=== PATIENT | male | born 1975 | race Caucasian/White ===

== ENCOUNTER 2016-12-18 11:25 | Inpatient (IN) | payer BC ==
[2016-12-18 14:50] VITALS: BMI 27.8
--- NOTE | 2016-12-18 16:48 | HP ---
COWS - Scale Resting Pulse: 1= [place] 81-100 Sweatin= Chills/Flushing Restless Observation: 3= Extraneous Movement Pupil Size: 0= Normal to Room Light Bone or Joint Aches: 1= Mild Discomfort Runny Nose/ Eye Tearin= Nasal Congestion GI Upset > 30mins: 2= Nausea/Diarrhea Tremor Observation: 2= Slight Tremor Visible Yawning Observation: 1= 1-2x During Session Anxiety or Irritability: 2=Irritable/Anxious Goose Flesh Skin: 0=Smooth Skin COWS Score: 14 CIWA Score - CIWA Score Nausea/Vomitin-Mild Nausea/No Vomiting Muscle Tremors: 4-Moderate,w/Arms Extend Anxiety: 4-Mod. Anxious/Guarded Agitation: 4-Moderately Restless Paroxysmal Sweats: 1-Minimal Palms Moist Orientation: 2-Disoriented Date<2 days Tacttile Disturbances: 0-None Auditory Disturbances: 0-None Visual Disturbances: 0-None Headache: 0-None Present CIWA-Ar Total Score: 16 Admission ROS S - HPI Chief Complaint: withdrawal sx Allergies/Adverse Reactions: Allergies Allergy/AdvReac Type Severity Reaction Status Date / Time No Known Allergies Allergy Verified 12/18/16 16:23 History of Present Illness: 41 years old male with long history of alcohol opiate cocaine nicotine dependence, history of hypertension has depression admitted to detox Exam Limitations: No Limitations - Ebola screening Have you traveled outside of the country in the last 21 days: No Have you had contact with anyone from an Ebola affected area: No Have you been sick,other than usual withdrawal symptoms: No Do you have a fever: No - Review of Systems Constitutional: Chills, Changes in sleep, Weight Stable EENT: reports: No Symptoms Reported Respiratory: reports: No Symptoms reported Cardiac: reports: No Symptoms Reported GI: reports: Nausea, Poor Fluid Intake, Abdominal cramping : reports: No Symptoms Reported Musculoskeletal: reports: Back Pain, Joint Pain, Muscle Pain, Neck Pain Integumentary: reports: Change in Color (both inner elbows) Neuro: reports: Tremors Endocrine: reports: No Symptoms Reported Hematology: reports: No Symptoms Reported Psychiatric: reports: Judgement Intact, Depressed Other Systems: Reviewed and Negative Patient History - Patient Medical History Hx Anemia: No Hx Asthma: No Hx Chronic Obstructive Pulmonary Disease (COPD): No Hx Cancer: No Hx Cardiac Disorders: No Hx Hypertension: Yes (non compliant with meds.) Hx Hypercholesterolemia: No Hx Pacemaker: No HX Cerebrovascular Accident: No Hx Seizures: No Hx Dementia: No Hx Diabetes: No Hx Gastrointestinal Disorders: No Hx Liver Disease: No Hx Genitourinary Disorders: No Hx Sexually Transmitted Disorders: No Hx Renal Disease (ESRD): No Hx Thyroid Disease: No Hx Human Immunodeficiency Virus (HIV): No (negative) Hx Hepatitis C: Yes (diagnosed 6months ago) Hx Depression: Yes Hx Suicide Attempt: No Hx Bipolar Disorder: No Hx Schizophrenia: No - Patient Surgical History Past Surgical History: No - PPD History Previous Implant?: Yes Documented Results: Negative w/o proof Implanted On Prior [facility] Admission?: No Date: 10/13/14 PPD to be Administered?: Yes - Smoking Cessation Smoking history: Current every day smoker Have you smoked in the past 12 months: Yes Aproximately how many cigarettes per day: 20 Cigars Per Day: 0 Hx Chewing Tobacco Use: No Initiated information on smoking cessation: Yes 'Breaking Loose' booklet given: 12/18/16 - Substance & Tx. History Hx Alcohol Use: Yes Hx Substance Use: Yes Substance Use Type: Alcohol, Cocaine, Opiates Hx Substance Use Treatment: Yes - Substances Abused Heroin Route: Injection Frequency: Daily Amount used: 8-10 bags Age of first use: 36 Date of Last Use: 12/18/16 Alcohol Route: Oral Frequency: Daily Amount used: 1 liter vodka Age of first use: 11 Date of Last Use: 12/17/16 Cocaine Route: Injection Frequency: 3-6 times per week Amount used: $20 Age of first use: 13 Date of Last Use: 12/17/16 Family Disease History - Family Disease History Family Disease History: [place]: Father (prostate), Other: Mother (thyroid), Brother (hepatitis c) Admission Physical Exam BHS - Vital Signs Vital Signs: Vital Signs - 24 hr 12/18/16 14:48 Temperature 97.9 F Pulse Rate 99 H Respiratory 20 Rate Blood Pressure 154/82 - Physical General Appearance: Yes: Nourished, Appropriately Dressed, Mild Distress, Tremorous, Irritable, Sweating, Anxious HEENTM: Yes: Hearing grossly Normal, Normal ENT Inspection, Normocephalic, Normal Voice Respiratory: Yes: Chest Non-Tender, Lungs Clear, Normal Breath Sounds, No Respiratory Distress, No Accessory Muscle Use Neck: Yes: Supple, Trachea in good position Breast: Yes: Breasts Symetrical Cardiology: Yes: Regular Rhythm, S1, S2, Tachycardia Abdominal: Yes: Non Tender, Soft Genitourinary: Yes: Within Normal Limits Back: Yes: Normal Inspection Musculoskeletal: Yes: full range of Motion, Gait Steady, Back pain, Muscle Pain Extremities: Yes: Normal Range of Motion, Non-Tender, Tremors Neurological: Yes: Alert, Motor Strength 5/5, Normal Response, Depressed Affect Integumentary: Yes: Warm, Track Schwab Lymphatic: Yes: Within Normal Limits - Diagnostic (1) Hypertension Current Visit: Yes Status: Chronic Qualifiers: Hypertension type: essential hypertension Qualified Code(s): I10 - Essential (primary) hypertension (2) Nicotine dependence Current Visit: Yes Status: Acute Qualifiers: Nicotine product type: cigarettes Substance use status: in withdrawal Qualified Code(s): F17.213 - Nicotine dependence, cigarettes, with withdrawal (3) Alcohol dependence with uncomplicated withdrawal Current Visit: Yes Status: Acute (4) Opioid dependence with withdrawal Current Visit: Yes Status: Acute (5) Cocaine dependence, uncomplicated Current Visit: Yes Status: Chronic (6) Hepatitis C antibody test positive Current Visit: Yes Status: Chronic (7) Depression (emotion) Current Visit: Yes Status: Suspected Qualifiers: Depression Type: dysthymia Qualified Code(s): F34.1 - Dysthymic disorder Cleared for Admission [facility] - Detox or Rehab [facility] Level of Care: Medically Managed Detox Regimen/Protocol: Methadone/Librium [facility] Breath Alcohol Content Breath Alcohol Content: 0 Urine Drug Screen - Results Drug Screen Negative: No Urine Drug Screen Results: TISHA-Cocaine, OPI-Opiates, TCA-Tricyclic Antidepress
[2016-12-18] MEDS ORDERED: LOPERAMIDE HCL 2 MG CAPSULE PO PRN (16:52)
[2016-12-18] MEDS ORDERED: MAGNESIUM HYDROX 2400MG/30ML ORAL SUSPENSION 30 ML CUP PO PRN (16:52)
[2016-12-18] MEDS ORDERED: P-EPHED 60MG/TRIPROLIDI 2.5MG TABLET PO PRN (16:52)
[2016-12-18] MEDS ORDERED: MAGNESIUM CITRATE 300 ML BOTTLE PO PRN (16:52)
[2016-12-18] MEDS ORDERED: MAG HYDROX/AL HYDROX/SIMETH 30 ML UNIT-DOSE CUP PO PRN (16:52)
[2016-12-18] MEDS ORDERED: guaiFENesin/D-METHORPHAN HB 10 ML UNIT-DOSE CUPS PO PRN (16:52)
[2016-12-18] MEDS ORDERED: chlordiazePOXIDE HCL 25 MG CAPSULE PO PRN (16:52)
[2016-12-18] MEDS ORDERED: MENTHOL/PHENOL 1 EACH UD MM PRN (16:52)
[2016-12-18] MEDS ORDERED: ACETAMINOPHEN 325 MG TABLET (FP) PO PRN (16:52)
[2016-12-18] MEDS ORDERED: cloNIDine HCL 0.1 MG TABLET PO PRN (16:56)
[2016-12-18] MEDS ORDERED: METHADONE HCL 10 MG TABLET (FOR DETOX USE ONLY) PO ONE ×2 (18:15→23:00)
[2016-12-18 21:39] LABS: URINE APPEARANCE CLEAR; URINE BLOOD NEGATIVE (NEGATIVE); URINE COLOR AMBER; URINE GLUCOSE (UA) NEGATIVE (NEGATIVE); URINE KETONE NEGATIVE (NEGATIVE); URINE LEUK ESTERASE NEGATIVE (NEGATIVE); URINE NITRITE NEGATIVE (NEGATIVE); URINE UROBILINOGEN 4.0 E.U/dl E.U./dl (0.2-1.0)
[2016-12-18 21:41] LABS: URINE PROTEIN 1+ (NEGATIVE)
[2016-12-18 22:06] LABS: URINE MUCUS MODERATE; URINE RBC 2 /hpf (0-3); URINE WBC 1 /hpf (3-5)
[2016-12-18] MEDS: chlordiazePOXIDE HCL 25 MG CAPSULE PO SCH (22:44)
[2016-12-18] MEDS: THIAMINE HCL 100 MG TABLET (FP) PO SCH (22:44)
[2016-12-18] MEDS: diphenhydrAMINE HCL 50 MG CAPSULE PO PRN (22:44)
[2016-12-19] MEDS: chlordiazePOXIDE HCL 25 MG CAPSULE PO SCH ×4 (06:09→23:03)
--- NOTE | 2016-12-19 09:06 | CONSULT ---
[facility] Psychiatric Consult - Data Date of interview: 12/19/16 Admission source: [facility] Identifying data: This is 41 years old male with psychiatric hospitalization history, intoxicated with: Alcoghol, Opioids, Cocaine, Nicotine Substance Abuse History: Smoking history: Current every day smoker. Have you smoked in the past 12 months: Yes. Aproximately how many cigarettes per day: 20. Cigars Per Day: 0. Hx Chewing Tobacco Use: No. Initiated information on smoking cessation: Yes. 'Breaking Loose' booklet given: 12/18/16. - Substance & Tx. History. Hx Alcohol Use: Yes. Hx Substance Use: Yes. Substance Use Type : Alcohol, Cocaine, Opiates. Hx Substance Use Treatment: Yes. - Substances Abused. Heroin. Route: Injection. Frequency: Daily. Amount used: 8-10 bags. Age of first use: 36. Date of Last Use: 12/18/16. Alcohol. Route: Oral. Frequency: Daily. Amount used: 1 liter vodka. Age of first use: 11. Date of Last Use: 12/17/16. Cocaine. Route: Injection. Frequency: 3-6 times per week. Amount used: $20. Age of first use: 13. Date of Last Use: Medical History: HepC+ Psychiatric History: Patient reports hsitory of depression, reports most recent psychiatric admission on [address] [facility], reports taking prior to admission: Abilify 5mg poqd Physical/Sexual Abuse/Trauma History: Denies Additional Comment: Abilify 5mg poqd Mental Status Exam - Mental Status Exam Alert and Oriented to: Person Cognitive Function: Fair Patient Appearance: Unkempt Mood: Sad Affect: Flat Patient Behavior: Sedated Speech Pattern: Delayed Voice Loudness: Mildly Soft/Quiet Thought Process: Circumstantial Thought Disorder: Being Controlled Hallucinations: Denies Suicidal Ideation: Denies Homicidal Ideation: Denies Insight/Judgement: Fair Sleep: Difficulty falling asleep Appetite: Weight loss Muscle strength/Tone: Mild Hypotonicity Gait/Station: Shuffling Additional Comments: Abilify 5mg poqd Psychiatric Findings - Problem List ([place] 1, 2,3) (1) Alcohol dependence with uncomplicated withdrawal Current Visit: Yes Status: Acute (2) Nicotine dependence Current Visit: Yes Status: Acute Qualifiers: Nicotine product type: cigarettes Substance use status: in withdrawal Qualified Code(s): F17.213 - Nicotine dependence, cigarettes, with withdrawal (3) Opioid dependence with withdrawal Current Visit: Yes Status: Acute (4) Cocaine dependence, uncomplicated Current Visit: Yes Status: Chronic (5) Drug-induced mood disorder Current Visit: No Status: Acute (6) Alcohol dependence Current Visit: No Status: Chronic (7) Cannabis dependence Current Visit: No Status: Chronic (8) Cocaine dependence Current Visit: No Status: Chronic (9) Heroin dependence Current Visit: No Status: Chronic (10) Xanax use disorder, mild Current Visit: No Status: Chronic - Initial Treatment Plan Initial Treatment Plan: Abilify 5mg poqd
[2016-12-19] MEDS ORDERED: METHADONE HCL 10 MG TABLET (FOR DETOX USE ONLY) PO SCH (10:00)
[2016-12-19 10:32] LABS: ALBUMIN 2.8 g/dl (3.4-5.0); ANION GAP 12 (8-16); CO2 31 mmol/L (21-32); GLUCOSE,RANDOM 133 mg/dL (74-106); SGOT/AST 150 U/L (15-37); SGPT/ALT 101 U/L (12-78)
[2016-12-19 10:34] LABS: ALK PHOS 127 U/L (45-117); BILIRUBIN,TOTAL 0.9 mg/dL (0.2-1.0); COCKROFT - GAULT 178.96; CREATININE 0.7 mg/dL (0.7-1.3); TOT PROT 7.7 g/dl (6.4-8.2)
[2016-12-19] MEDS: PRENATAL VITAMINS W/ FOLIC ACID TABLET (FP) PO SCH (10:38)
[2016-12-19] MEDS: NICOTINE 21 MG/24 HOURS TOPICAL PATCH TD SCH (10:38)
[2016-12-19] MEDS: ARIPiprazole 5 MG TABLET (FP) PO SCH (10:39)
[2016-12-19 11:15] LABS: HIV 1 & 2 AB NEGATIVE; HIV 1 AGp24 NEGATIVE
--- NOTE | 2016-12-19 12:36 | PN ---
S CIWA - CIWA Score Nausea/Vomitin-No Nausea/No Vomiting Muscle Tremors: 4-Moderate,w/Arms Extend Anxiety: 4-Mod. Anxious/Guarded Agitation: 4-Moderately Restless Paroxysmal Sweats: 1-Minimal Palms Moist Orientation: 0-Oriented Tacttile Disturbances: 3-Moderate Itch/Numb/Burn Auditory Disturbances: 0-None Visual Disturbances: 0-None Headache: 0-None Present CIWA-Ar Total Score: 16 BHS COWS - Scale Resting Pulse: 1= [place] 81-100 Sweatin= Chills/Flushing Restless Observation: 3= Extraneous Movement Pupil Size: 2= Moderately Dilated Bone or Joint Aches: 4=Acute Joint/Muscle Pain Runny Nose/ Eye Tearin= Nasal Congestion GI Upset > 30mins: 1= Stomach Cramp Tremor Observation of Outstretched Hands: 2= Slight Tremor Visible Yawning Observation: 2= >3x During Session Anxiety or Irritability: 2=Irritable/Anxious Goose Flesh Skin: 0=Smooth Skin COWS Score: 19 BHS Progress Note (SOAP) Subjective: ANXIETY,TREMORS,SWEATS/CHILLS,INTERMITTENT SLEEP. PT HAS A HX OF ELEVATED BP AND HAS TAKEN CLONIDINE PER HIS OUTSIDE PHARMACY PROFILE THOUGH NOT RECENTLY. Objective: 12/19/16 12:34 Vital Signs 12/19/16 12/19/16 06:51 09:23 Temperature 97.0 F L 97.2 F L Pulse Rate 86 93 H Respiratory 18 20 Rate Blood Pressure 176/107 152/89 Laboratory Last Values WBC Cancelled 12/19/16 06:00 Corrected WBC (auto) Cancelled 12/19/16 06:00 RBC Cancelled 12/19/16 06:00 Hgb Cancelled 12/19/16 06:00 Hct Cancelled 12/19/16 06:00 MCV Cancelled 12/19/16 06:00 MCHC Cancelled 12/19/16 06:00 RDW Cancelled 12/19/16 06:00 Plt Count Cancelled 12/19/16 06:00 MPV Cancelled 12/19/16 06:00 Differential Comment Cancelled 12/19/16 06:00 Platelet Estimate Cancelled 12/19/16 06:00 Platelet Comment Cancelled 12/19/16 06:00 Platelet Comment Cancelled 12/19/16 06:00 RBC Morphology Cancelled 12/19/16 06:00 Sodium 138 mmol/L (136-145) 12/19/16 06:00 Potassium 4.2 mmol/L (3.5-5.1) 12/19/16 06:00 Chloride 95 mmol/L (98-107) L 12/19/16 06:00 Carbon Dioxide 31 mmol/L (21-32) 12/19/16 06:00 Anion Gap 12 (8-16) 12/19/16 06:00 BUN 7 mg/dL (7-18) D 12/19/16 06:00 Creatinine 0.7 mg/dL (0.7-1.3) 12/19/16 06:00 Creat Clearance w eGFR > 60 (>60) 12/19/16 06:00 Random Glucose 133 mg/dL (74-106) H 12/19/16 06:00 Calcium 9.0 mg/dL (8.5-10.1) 12/19/16 06:00 Total Bilirubin 0.9 mg/dL (0.2-1.0) D 12/19/16 06:00 AST 150 U/L (15-37) H D 12/19/16 06:00 ALT 101 U/L (12-78) H D 12/19/16 06:00 Alkaline Phosphatase 127 U/L (45-117) H D 12/19/16 06:00 Total Protein 7.7 g/dl (6.4-8.2) 12/19/16 06:00 Albumin 2.8 g/dl (3.4-5.0) L D 12/19/16 06:00 Urine Color Prachi 12/18/16 21:20 Urine Appearance Clear 12/18/16 21:20 Urine pH 7.0 (5.0-8.0) D 12/18/16 21:20 Ur Specific [place] 1.026 (1.001-1.035) 12/18/16 21:20 Urine Protein 1+ (NEGATIVE) H 12/18/16 21:20 Urine Glucose (UA) Negative (NEGATIVE) 12/18/16 21:20 Urine Ketones Negative (NEGATIVE) 12/18/16 21:20 Urine Blood Negative (NEGATIVE) 12/18/16 21:20 Urine Nitrite Negative (NEGATIVE) 12/18/16 21:20 Urine Bilirubin 2.0 (NEGATIVE) 12/18/16 21:20 Urine Urobilinogen 4.0 e.u/dl E.U./dl (0.2-1.0) 12/18/16 21:20 Ur Leukocyte Esterase Negative (NEGATIVE) 12/18/16 21:20 Urine RBC 2 /hpf (0-3) 12/18/16 21:20 Urine WBC 1 /hpf (3-5) 12/18/16 21:20 Urine Mucus Moderate 12/18/16 21:20 RPR Titer Nonreactive (NONREACTIVE) 12/19/16 06:00 HIV 1&2 Antibody Screen Negative 12/18/16 06:00 HIV P24 Antigen Negative 12/18/16 06:00 LABS NOTED; OTHER RESULTS PENDING Assessment: 12/19/16 12:34 WITHDRAWAL SX UNCONTROLLED BP Plan: CONTINUE DETOX CLONIDINE 0.1 MG PO STAT THEN BID
[2016-12-19] MEDS ORDERED: cloNIDine HCL 0.1 MG TABLET PO ONE (12:49)
--- NOTE | 2016-12-19 13:34 | EKG ---
Test Reason : Blood Pressure : / mmHG Vent. Rate : 088 BPM Atrial Rate : 088 BPM P-R Int : 142 ms QRS Dur : 088 ms QT Int : 364 ms P-R-T Axes : 065 073 060 degrees QTc Int : 440 ms NORMAL SINUS RHYTHM NORMAL ECG NO PREVIOUS ECGS AVAILABLE Confirmed by BRENT HOOPER, CRISTINA ([id number]) on 12/19/2016 1:33:38 PM Referred By: Marko Brantley Confirmed By:CRISTINA KENNEDY MD
[2016-12-19] MEDS: NICOTINE POLACRILEX 4 MG GUM BC PRN (14:37)
[2016-12-19 15:43] LABS: MCH 30.5 pg (25.7-33.7); MCHC 32.5 g/dl (32.0-35.9); MEAN CELL VOLUME 93.9 fl (80-96); MEAN PLT VOLUME 9.7 fl (7.5-11.1); PLATELET COUNT 251 K/MM3 (134-434); RDW 16.9 % (11.9-15.9); WHITE BLOOD COUNT 7.2 K/mm3 (4.0-10.0)
[2016-12-19] MEDS: IBUPROFEN 400 MG TABLET (FP) PO PRN (20:02)
[2016-12-19] MEDS: THIAMINE HCL 100 MG TABLET (FP) PO SCH (22:55)
[2016-12-19] MEDS: cloNIDine HCL 0.1 MG TABLET PO SCH (22:55)
[2016-12-19] MEDS: diphenhydrAMINE HCL 50 MG CAPSULE PO PRN (23:03)
[2016-12-20] MEDS: chlordiazePOXIDE HCL 25 MG CAPSULE PO SCH ×3 (05:49→17:10)
[2016-12-20 10:04] LABS: INR 1.06 (0.82-1.09); PROTHROMBIN TIME (PATIENT) 11.7 SEC (9.98-11.88)
--- NOTE | 2016-12-20 10:21 | PN ---
[facility] CIWA - CIWA Score Nausea/Vomitin-Mild Nausea/No Vomiting Muscle Tremors: 4-Moderate,w/Arms Extend Anxiety: 3 Agitation: 3 Paroxysmal Sweats: 3 Orientation: 0-Oriented Tacttile Disturbances: 0-None Auditory Disturbances: 0-None Visual Disturbances: 0-None Headache: 0-None Present CIWA-Ar Total Score: 14 BHS COWS - Scale Resting Pulse: 1= [place] 81-100 Sweatin=Flushed/Facial Moisture Restless Observation: 1= Difficult to Sit Still Pupil Size: 0= Normal to Room Light Bone or Joint Aches: 2= Severe Diffuse Aches Runny Nose/ Eye Tearin= Runny Nose/Eyes GI Upset > 30mins: 2= Nausea/Diarrhea Tremor Observation of Outstretched Hands: 2= Slight Tremor Visible Yawning Observation: 1= 1-2x During Session Anxiety or Irritability: 2=Irritable/Anxious Goose Flesh Skin: 0=Smooth Skin COWS Score: 15 [facility] Progress Note (SOAP) Subjective: Anxiety,tremors,sweating,interrupted sleep,restless,nausea Objective: 12/20/16 10:23 Vital Signs - 8 hr 12/20/16 12/20/16 12/20/16 03:37 06:45 09:35 Temperature 97.6 F 97.4 F L Pulse Rate 87 93 H Respiratory 18 18 20 Rate Blood Pressure 138/90 143/95 Laboratory Last Values WBC 7.2 K/mm3 (4.0-10.0) 12/19/16 12:00 Corrected WBC (auto) Cancelled 12/19/16 06:00 RBC 4.39 M/mm3 (4.00-5.60) 12/19/16 12:00 Hgb 13.4 GM/dL (11.7-16.9) D 12/19/16 12:00 Hct 41.2 % (35.4-49) 12/19/16 12:00 MCV 93.9 fl (80-96) 12/19/16 12:00 MCHC 32.5 g/dl (32.0-35.9) 12/19/16 12:00 RDW 16.9 % (11.9-15.9) H D 12/19/16 12:00 Plt Count 251 K/MM3 (134-434) 12/19/16 12:00 MPV 9.7 fl (7.5-11.1) 12/19/16 12:00 Differential Comment Cancelled 12/19/16 06:00 Platelet Estimate Cancelled 12/19/16 06:00 Platelet Comment Cancelled 12/19/16 06:00 Platelet Comment Cancelled 12/19/16 06:00 RBC Morphology Cancelled 12/19/16 06:00 Sodium 138 mmol/L (136-145) 12/19/16 06:00 Potassium 4.2 mmol/L (3.5-5.1) 12/19/16 06:00 Chloride 95 mmol/L (98-107) L 12/19/16 06:00 Carbon Dioxide 31 mmol/L (21-32) 12/19/16 06:00 Anion Gap 12 (8-16) 12/19/16 06:00 BUN 7 mg/dL (7-18) D 12/19/16 06:00 Creatinine 0.7 mg/dL (0.7-1.3) 12/19/16 06:00 Creat Clearance w eGFR > 60 (>60) 12/19/16 06:00 Random Glucose 133 mg/dL (74-106) H 12/19/16 06:00 Calcium 9.0 mg/dL (8.5-10.1) 12/19/16 06:00 Total Bilirubin 0.9 mg/dL (0.2-1.0) D 12/19/16 06:00 AST 150 U/L (15-37) H D 12/19/16 06:00 ALT 101 U/L (12-78) H D 12/19/16 06:00 Alkaline Phosphatase 127 U/L (45-117) H D 12/19/16 06:00 Total Protein 7.7 g/dl (6.4-8.2) 12/19/16 06:00 Albumin 2.8 g/dl (3.4-5.0) L D 12/19/16 06:00 Urine Color Prachi 12/18/16 21:20 Urine Appearance Clear 12/18/16 21:20 Urine pH 7.0 (5.0-8.0) D 12/18/16 21:20 Ur Specific [place] 1.026 (1.001-1.035) 12/18/16 21:20 Urine Protein 1+ (NEGATIVE) H 12/18/16 21:20 Urine Glucose (UA) Negative (NEGATIVE) 12/18/16 21:20 Urine Ketones Negative (NEGATIVE) 12/18/16 21:20 Urine Blood Negative (NEGATIVE) 12/18/16 21:20 Urine Nitrite Negative (NEGATIVE) 12/18/16 21:20 Urine Bilirubin 2.0 (NEGATIVE) 12/18/16 21:20 Urine Urobilinogen 4.0 e.u/dl E.U./dl (0.2-1.0) 12/18/16 21:20 Ur Leukocyte Esterase Negative (NEGATIVE) 12/18/16 21:20 Urine RBC 2 /hpf (0-3) 12/18/16 21:20 Urine WBC 1 /hpf (3-5) 12/18/16 21:20 Urine Mucus Moderate 12/18/16 21:20 RPR Titer Nonreactive (NONREACTIVE) 12/19/16 06:00 HIV 1&2 Antibody Screen Negative 12/18/16 06:00 HIV P24 Antigen Negative 12/18/16 06:00 labs noted Assessment: 12/20/16 10:25 Withdrawal sx Plan: Continue detox
[2016-12-20] MEDS: NICOTINE 21 MG/24 HOURS TOPICAL PATCH TD SCH (10:33)
[2016-12-20] MEDS: cloNIDine HCL 0.1 MG TABLET PO SCH ×2 (10:33→22:33)
[2016-12-20] MEDS: METHADONE HCL 5 MG TABLET (FOR DETOX USE ONLY) PO SCH (10:33)
[2016-12-20] MEDS: PRENATAL VITAMINS W/ FOLIC ACID TABLET (FP) PO SCH (10:33)
[2016-12-20] MEDS: ARIPiprazole 5 MG TABLET (FP) PO SCH (10:33)
[2016-12-20] MEDS: IBUPROFEN 400 MG TABLET (FP) PO PRN (17:12)
[2016-12-20] MEDS: THIAMINE HCL 100 MG TABLET (FP) PO SCH (22:33)
[2016-12-20] MEDS: diphenhydrAMINE HCL 50 MG CAPSULE PO PRN (22:33)
[2016-12-20] MEDS: chlordiazePOXIDE 5 MG CAPSULE PO SCH (22:34)
[2016-12-21] MEDS: chlordiazePOXIDE 5 MG CAPSULE PO SCH ×3 (05:37→17:28)
[2016-12-21] MEDS: NICOTINE POLACRILEX 4 MG GUM BC PRN ×2 (09:28→20:35)
[2016-12-21] MEDS: PRENATAL VITAMINS W/ FOLIC ACID TABLET (FP) PO SCH (10:40)
[2016-12-21] MEDS: METHADONE HCL 5 MG TABLET (FOR DETOX USE ONLY) PO SCH (10:41)
[2016-12-21] MEDS: cloNIDine HCL 0.1 MG TABLET PO SCH ×2 (10:41→22:41)
[2016-12-21] MEDS: ARIPiprazole 5 MG TABLET (FP) PO SCH (10:41)
[2016-12-21] MEDS: NICOTINE 21 MG/24 HOURS TOPICAL PATCH TD SCH (10:41)
[2016-12-21 11:23] LABS: ALBUMIN 2.5 g/dl (3.4-5.0); ANION GAP 11 (8-16); BILIRUBIN,TOTAL 0.6 mg/dL (0.2-1.0); CALCIUM 8.9 mg/dL (8.5-10.1); CO2 24 mmol/L (21-32); COCKROFT - GAULT 178.96; CREATININE 0.7 mg/dL (0.7-1.3); GLUCOSE,RANDOM 163 mg/dL (74-106); SGOT/AST 168 U/L (15-37); SGPT/ALT 106 U/L (12-78)
[2016-12-21 11:24] LABS: ALK PHOS 125 U/L (45-117); TOT PROT 6.9 g/dl (6.4-8.2)
[2016-12-21] MEDS: IBUPROFEN 400 MG TABLET (FP) PO PRN ×2 (13:29→20:22)
--- NOTE | 2016-12-21 16:22 | PN ---
S Progress Note (SOAP) Subjective: Fatigue, Tremors. Objective: PT. A & O X 3. PT. DENIES CHEST PAIN. 12/21/16 16:20 Vital Signs Temperature 99.0 F 12/21/16 13:54 Pulse Rate 104 H 12/21/16 13:54 Respiratory Rate 16 12/21/16 13:54 Blood Pressure 144/93 12/21/16 13:54 O2 Sat by Pulse Oximetry (%) Laboratory Last Values WBC 7.2 K/mm3 (4.0-10.0) 12/19/16 12:00 Corrected WBC (auto) Cancelled 12/19/16 06:00 RBC 4.39 M/mm3 (4.00-5.60) 12/19/16 12:00 Hgb 13.4 GM/dL (11.7-16.9) D 12/19/16 12:00 Hct 41.2 % (35.4-49) 12/19/16 12:00 MCV 93.9 fl (80-96) 12/19/16 12:00 MCHC 32.5 g/dl (32.0-35.9) 12/19/16 12:00 RDW 16.9 % (11.9-15.9) H D 12/19/16 12:00 Plt Count 251 K/MM3 (134-434) 12/19/16 12:00 MPV 9.7 fl (7.5-11.1) 12/19/16 12:00 Differential Comment Cancelled 12/19/16 06:00 Platelet Estimate Cancelled 12/19/16 06:00 Platelet Comment Cancelled 12/19/16 06:00 Platelet Comment Cancelled 12/19/16 06:00 RBC Morphology Cancelled 12/19/16 06:00 INR 1.06 (0.82-1.09) 12/20/16 07:00 Sodium 137 mmol/L (136-145) 12/21/16 07:50 Potassium 4.2 mmol/L (3.5-5.1) 12/21/16 07:50 Chloride 102 mmol/L (98-107) 12/21/16 07:50 Carbon Dioxide 24 mmol/L (21-32) D 12/21/16 07:50 Anion Gap 11 (8-16) 12/21/16 07:50 BUN 7 mg/dL (7-18) 12/21/16 07:50 Creatinine 0.7 mg/dL (0.7-1.3) 12/21/16 07:50 Creat Clearance w eGFR > 60 (>60) 12/21/16 07:50 Random Glucose 163 mg/dL (74-106) H D 12/21/16 07:50 Calcium 8.9 mg/dL (8.5-10.1) 12/21/16 07:50 Total Bilirubin 0.6 mg/dL (0.2-1.0) D 12/21/16 07:50 AST 168 U/L (15-37) H 12/21/16 07:50 ALT 106 U/L (12-78) H 12/21/16 07:50 Alkaline Phosphatase 125 U/L (45-117) H 12/21/16 07:50 Total Protein 6.9 g/dl (6.4-8.2) 12/21/16 07:50 Albumin 2.5 g/dl (3.4-5.0) L 12/21/16 07:50 Urine Color Prachi 12/18/16 21:20 Urine Appearance Clear 12/18/16 21:20 Urine pH 7.0 (5.0-8.0) D 12/18/16 21:20 Ur Specific [place] 1.026 (1.001-1.035) 12/18/16 21:20 Urine Protein 1+ (NEGATIVE) H 12/18/16 21:20 Urine Glucose (UA) Negative (NEGATIVE) 12/18/16 21:20 Urine Ketones Negative (NEGATIVE) 12/18/16 21:20 Urine Blood Negative (NEGATIVE) 12/18/16 21:20 Urine Nitrite Negative (NEGATIVE) 12/18/16 21:20 Urine Bilirubin 2.0 (NEGATIVE) 12/18/16 21:20 Urine Urobilinogen 4.0 e.u/dl E.U./dl (0.2-1.0) 12/18/16 21:20 Ur Leukocyte Esterase Negative (NEGATIVE) 12/18/16 21:20 Urine RBC 2 /hpf (0-3) 12/18/16 21:20 Urine WBC 1 /hpf (3-5) 12/18/16 21:20 Urine Mucus Moderate 12/18/16 21:20 RPR Titer Nonreactive (NONREACTIVE) 12/19/16 06:00 HIV 1&2 Antibody Screen Negative 12/18/16 06:00 HIV P24 Antigen Negative 12/18/16 06:00 LABS NOTED. Assessment: 12/21/16 16:22 WITHDRAWAL SYMPTOMS. Plan: CONTINUE DETOX. ADVISED PATIENT TO FOLLOW-UP WITH [employer] SALES CONSULTANT / REHAB MEDICAL PROVIDER AFTER DISCHARGE FROM DETOX FOR GENERAL MEDICAL ASSESSMENT AND FOR ABNORMAL ADMISSION LAB VALUES.
[2016-12-21] MEDS: THIAMINE HCL 100 MG TABLET (FP) PO SCH (22:41)
[2016-12-21] MEDS: chlordiazePOXIDE HCL 10 MG CAPSULE PO SCH (22:41)
[2016-12-21] MEDS: diphenhydrAMINE HCL 50 MG CAPSULE PO PRN (22:41)
[2016-12-22] MEDS: chlordiazePOXIDE HCL 10 MG CAPSULE PO SCH ×3 (05:56→17:09)
[2016-12-22] MEDS ORDERED: METHADONE HCL 10 MG TABLET (FOR DETOX USE ONLY) PO SCH (10:00)
[2016-12-22] MEDS: PRENATAL VITAMINS W/ FOLIC ACID TABLET (FP) PO SCH (10:35)
[2016-12-22] MEDS: NICOTINE 21 MG/24 HOURS TOPICAL PATCH TD SCH (10:36)
[2016-12-22] MEDS: NICOTINE POLACRILEX 4 MG GUM BC PRN ×2 (10:36→18:47)
[2016-12-22] MEDS: ARIPiprazole 5 MG TABLET (FP) PO SCH (10:36)
[2016-12-22] MEDS: cloNIDine HCL 0.1 MG TABLET PO SCH ×2 (10:36→22:46)
[2016-12-22] MEDS: IBUPROFEN 400 MG TABLET (FP) PO PRN (14:20)
--- NOTE | 2016-12-22 15:48 | PN ---
S Progress Note (SOAP) Subjective: Anxious, sweating, interrupted sleep Objective: 12/22/16 15:47 Last Vital Signs Temp Pulse Resp BP Pulse Ox 97.4 F L 112 H 19 152/99 12/22/16 13:18 12/22/16 13:18 12/22/16 13:18 12/22/16 13:18 Laboratory Tests 12/18/16 12/18/16 12/19/16 06:00 21:20 06:00 WBC Cancelled Corrected WBC (auto) Cancelled RBC Cancelled Hgb Cancelled Hct Cancelled MCV Cancelled MCHC Cancelled RDW Cancelled Plt Count Cancelled MPV Cancelled Differential Comment Cancelled Platelet Estimate Cancelled Platelet Comment Cancelled RBC Morphology Cancelled INR Sodium Potassium Chloride Carbon Dioxide Anion Gap BUN Creatinine Creat Clearance w eGFR Random Glucose Calcium Total Bilirubin AST ALT Alkaline Phosphatase Total Protein Albumin Urine Color Prachi Urine Appearance Clear Urine pH 7.0 D Ur Specific [place] 1.026 Urine Protein 1+ H Urine Glucose (UA) Negative Urine Ketones Negative Urine Blood Negative Urine Nitrite Negative Urine Bilirubin 2.0 Urine Urobilinogen 4.0 e.u/dl Ur Leukocyte Esterase Negative Urine RBC 2 Urine WBC 1 Urine Mucus Moderate RPR Titer HIV 1&2 Antibody Screen Negative HIV P24 Antigen Negative 12/19/16 12/19/16 12/19/16 06:00 06:00 12:00 WBC 7.2 Corrected WBC (auto) RBC 4.39 Hgb 13.4 D Hct 41.2 MCV 93.9 MCHC 32.5 RDW 16.9 H D Plt Count 251 MPV 9.7 Differential Comment Platelet Estimate Platelet Comment RBC Morphology INR Sodium 138 Potassium 4.2 Chloride 95 L Carbon Dioxide 31 Anion Gap 12 BUN 7 D Creatinine 0.7 Creat Clearance w eGFR > 60 Random Glucose 133 H Calcium 9.0 Total Bilirubin 0.9 D AST 150 H D ALT 101 H D Alkaline Phosphatase 127 H D Total Protein 7.7 Albumin 2.8 L D Urine Color Urine Appearance Urine pH Ur Specific [place] Urine Protein Urine Glucose (UA) Urine Ketones Urine Blood Urine Nitrite Urine Bilirubin Urine Urobilinogen Ur Leukocyte Esterase Urine RBC Urine WBC Urine Mucus RPR Titer Nonreactive HIV 1&2 Antibody Screen HIV P24 Antigen 12/20/16 12/21/16 07:00 07:50 WBC Corrected WBC (auto) RBC Hgb Hct MCV MCHC RDW Plt Count MPV Differential Comment Platelet Estimate Platelet Comment RBC Morphology INR 1.06 Sodium 137 Potassium 4.2 Chloride 102 Carbon Dioxide 24 D Anion Gap 11 BUN 7 Creatinine 0.7 Creat Clearance w eGFR > 60 Random Glucose 163 H D Calcium 8.9 Total Bilirubin 0.6 D AST 168 H ALT 106 H Alkaline Phosphatase 125 H Total Protein 6.9 Albumin 2.5 L Urine Color Urine Appearance Urine pH Ur Specific [place] Urine Protein Urine Glucose (UA) Urine Ketones Urine Blood Urine Nitrite Urine Bilirubin Urine Urobilinogen Ur Leukocyte Esterase Urine RBC Urine WBC Urine Mucus RPR Titer HIV 1&2 Antibody Screen HIV P24 Antigen Labs noted Assessment: 12/22/16 15:48 Withdrawal symptoms Plan: Continue detox
[2016-12-22] MEDS: THIAMINE HCL 100 MG TABLET (FP) PO SCH (22:46)
[2016-12-22] MEDS: diphenhydrAMINE HCL 50 MG CAPSULE PO PRN (22:46)
[2016-12-23] MEDS ORDERED: METHADONE HCL 5 MG TABLET (FOR DETOX USE ONLY) PO SCH (06:00)
[2016-12-23] MEDS: IBUPROFEN 400 MG TABLET (FP) PO PRN (06:50)
--- NOTE | 2016-12-23 08:50 | DS ---
[facility] Detox Discharge Summary Admission Date: 12/18/16 Discharge Date: 12/23/16 - History Present History: Alcohol Dependence, Cocaine Dependence, Opioid Dependence Pertinent Past History: Hep C HTN - Physical Exam Results Vital Signs: Vital Signs Temperature 97.3 F L 12/23/16 06:50 Pulse Rate 98 H 12/23/16 06:50 Respiratory Rate 18 12/23/16 06:50 Blood Pressure 150/94 12/23/16 06:50 O2 Sat by Pulse Oximetry (%) Pertinent Admission Physical Exam Findings: Withdrawal sx. Laboratory Last Values WBC 7.2 K/mm3 (4.0-10.0) 12/19/16 12:00 Corrected WBC (auto) Cancelled 12/19/16 06:00 RBC 4.39 M/mm3 (4.00-5.60) 12/19/16 12:00 Hgb 13.4 GM/dL (11.7-16.9) D 12/19/16 12:00 Hct 41.2 % (35.4-49) 12/19/16 12:00 MCV 93.9 fl (80-96) 12/19/16 12:00 MCHC 32.5 g/dl (32.0-35.9) 12/19/16 12:00 RDW 16.9 % (11.9-15.9) H D 12/19/16 12:00 Plt Count 251 K/MM3 (134-434) 12/19/16 12:00 MPV 9.7 fl (7.5-11.1) 12/19/16 12:00 Differential Comment Cancelled 12/19/16 06:00 Platelet Estimate Cancelled 12/19/16 06:00 Platelet Comment Cancelled 12/19/16 06:00 Platelet Comment Cancelled 12/19/16 06:00 RBC Morphology Cancelled 12/19/16 06:00 INR 1.06 (0.82-1.09) 12/20/16 07:00 Sodium 137 mmol/L (136-145) 12/21/16 07:50 Potassium 4.2 mmol/L (3.5-5.1) 12/21/16 07:50 Chloride 102 mmol/L (98-107) 12/21/16 07:50 Carbon Dioxide 24 mmol/L (21-32) D 12/21/16 07:50 Anion Gap 11 (8-16) 12/21/16 07:50 BUN 7 mg/dL (7-18) 12/21/16 07:50 Creatinine 0.7 mg/dL (0.7-1.3) 12/21/16 07:50 Creat Clearance w eGFR > 60 (>60) 12/21/16 07:50 Random Glucose 163 mg/dL (74-106) H D 12/21/16 07:50 Calcium 8.9 mg/dL (8.5-10.1) 12/21/16 07:50 Total Bilirubin 0.6 mg/dL (0.2-1.0) D 12/21/16 07:50 AST 168 U/L (15-37) H 12/21/16 07:50 ALT 106 U/L (12-78) H 12/21/16 07:50 Alkaline Phosphatase 125 U/L (45-117) H 12/21/16 07:50 Total Protein 6.9 g/dl (6.4-8.2) 12/21/16 07:50 Albumin 2.5 g/dl (3.4-5.0) L 12/21/16 07:50 Urine Color Pr[place] 12/18/16 21:20 Urine Appearance Clear 12/18/16 21:20 Urine pH 7.0 (5.0-8.0) D 12/18/16 21:20 Ur Specific [place] 1.026 (1.001-1.035) 12/18/16 21:20 Urine Protein 1+ (NEGATIVE) H 12/18/16 21:20 Urine Glucose (UA) Negative (NEGATIVE) 12/18/16 21:20 Urine Ketones Negative (NEGATIVE) 12/18/16 21:20 Urine Blood Negative (NEGATIVE) 12/18/16 21:20 Urine Nitrite Negative (NEGATIVE) 12/18/16 21:20 Urine Bilirubin 2.0 (NEGATIVE) 12/18/16 21:20 Urine Urobilinogen 4.0 e.u/dl E.U./dl (0.2-1.0) 12/18/16 21:20 Ur Leukocyte Esterase Negative (NEGATIVE) 12/18/16 21:20 Urine RBC 2 /hpf (0-3) 12/18/16 21:20 Urine WBC 1 /hpf (3-5) 12/18/16 21:20 Urine Mucus Moderate 12/18/16 21:20 RPR Titer Nonreactive (NONREACTIVE) 12/19/16 06:00 HIV 1&2 Antibody Screen Negative 12/18/16 06:00 HIV P24 Antigen Negative 12/18/16 06:00 labs noted - Treatment Hospital Course: Detox Protocol Followed, Detoxed Safely, Responded well, Discharged Condition Good, Rehab Referral Accepted Patient has Accepted a Rehab Referral to: [facility] - Medication Discharge Medications: Ambulatory Orders Aripiprazole [Abilify -] 5 mg PO DAILY #30 tablet 10/12/14 Aripiprazole [Abilify -] 5 mg PO DAILY #30 tablet 12/19/16 - Diagnosis (1) Alcohol dependence with uncomplicated withdrawal Current Visit: Yes Status: Acute (2) Nicotine dependence Current Visit: Yes Status: Acute Qualifiers: Nicotine product type: cigarettes Substance use status: in withdrawal Qualified Code(s): F17.213 - Nicotine dependence, cigarettes, with withdrawal (3) Opioid dependence with withdrawal Current Visit: Yes Status: Acute (4) Cocaine dependence, uncomplicated Current Visit: Yes Status: Chronic (5) Hepatitis C antibody test positive Current Visit: Yes Status: Chronic (6) Hypertension Current Visit: Yes Status: Chronic Qualifiers: Hypertension type: essential hypertension Qualified Code(s): I10 - Essential (primary) hypertension (7) Drug-induced mood disorder Current Visit: Yes Status: Acute - AMA Did Patient Leave Against Medical Advice: No
[2016-12-23 09:28] VITALS: BP 131/87; PULSE 100; TEMP 97
[2016-12-23] MEDS: PRENATAL VITAMINS W/ FOLIC ACID TABLET (FP) PO SCH (09:37)
[2016-12-23] MEDS: cloNIDine HCL 0.1 MG TABLET PO SCH (09:37)
[2016-12-23] MEDS: NICOTINE 21 MG/24 HOURS TOPICAL PATCH TD SCH (09:38)
[2016-12-23] MEDS: ARIPiprazole 5 MG TABLET (FP) PO SCH (09:38)
== END 2016-12-23 09:46 | disposition home or self-care (01) | DRG 773 ==
LOC: YASAS 11:25 → Y3N 17:39
PROVIDERS: ADMIT Internal Medicine; ATTEND Internal Medicine
PROC: HZ2ZZZZ Detoxification Services for Substance Abuse Treatment (ICD-10-PCS; principal; 2016-12-23)
DX: F11.23 Opioid dependence with withdrawal (principal); F10.230 Alcohol dependence with withdrawal, uncomplicated; F14.20 Cocaine dependence, uncomplicated; F17.213 Nicotine dependence, cigarettes, with withdrawal; F19.24 Other psychoactive substance dependence with psychoactive substance-induced mood disorder; I10 Essential (primary) hypertension; B18.2 Chronic viral hepatitis C
CPT/HCPCS: 36415; 80053; 81003; 81015; 85027; 85610; 86593; 87389; 93005; 93010

== ENCOUNTER 2018-12-27 11:06 | Inpatient (IN) | payer OTHER ==
[2018-12-27 12:21] VITALS: BMI 30.2
--- NOTE | 2018-12-27 13:24 | HP ---
COWS - Scale Resting Pulse: 0= [place] 80 or Below Sweatin=Flushed/Facial Moisture Restless Observation: 3= Extraneous Movement Pupil Size: 0= Normal to Room Light Bone or Joint Aches: 0= None Runny Nose/ Eye Tearin= None GI Upset > 30mins: 0= None Tremor Observation: 1= Tremor Walker, Not Seen Yawning Observation: 1= 1-2x During Session Anxiety or Irritability: 1=Feels Anxious/Irritable Goose Flesh Skin: 0=Smooth Skin COWS Score: 8 CIWA Score Nausea/Vomitin-No Nausea/No Vomiting Muscle Tremors: 2 Anxiety: 3 Agitation: 4-Moderately Restless Paroxysmal Sweats: 2 Orientation: 0-Oriented Tacttile Disturbances: 0-None Auditory Disturbances: 0-None Visual Disturbances: 0-None Headache: 0-None Present CIWA-Ar Total Score: 11 - Admission Criteria [facility]ASAS Guidelines: Admission for Medically Managed Detox: Requires at least one of the followin. CIWA greater than 12 2. Seizures within the past 24 hours 3. Delirium tremens within the past 24 hours 4. Hallucinations within the past 24 hours 5. Acute intervention needed for co occurring medical disorder 6. Acute intervention needed for co occurring psychiatric disorder 7. Severe withdrawal that cannot be handled at a lower level of care (continued vomiting, continued diarrhea, abnormal vital signs) requiring intravenous medication and/or fluids 8. Patient presents the following: Seizures, delirium tremens or hallucinations in the past 12 hours Admission Criteria Met: Admission criteria met Admission ROS S - [facility] Chief Complaint: "I want to stop alcohol and heroin, stop all my drugs" Allergies/Adverse Reactions: Allergies Allergy/AdvReac Type Severity Reaction Status Date / Time No Known Allergies Allergy Verified 12/27/18 12:21 History of Present Illness: 43 y/o male with a history of poly drug abuse presents requesting detox. Pt is known to this facility and was last here in 2017. Denies a remarkable period of sobriety in the last year. Denies any suicidal nor homicidal ideation, denies seizures but endorses blackouts. Hx - HTN, High chol, Hep C (no treatment) ADHD, ADD, Depression, Insomnia L leg with cellulitis Confidential Drug Utilization Report Search Terms: skip chow, 1975 Search Date: 12/27/2018 01:14:01 PM The Drug Utilization Report below displays all of the controlled substance prescriptions, if any, that your patient has filled in the last twelve months. The information displayed on this report is compiled from pharmacy submissions to the Department, and accurately reflects the information as submitted by the pharmacies. This report was requested by: Candace Desouza | Reference #: [id number] There are no results for the search terms that you entered. Utox is positive for Bzo, mtd, fen, opi; pt states he is on valium for his anxiety, ambien for insomina but no records per above. he endorses using street methadone, denies using fentanyl, states "they cut the dope with it I guess". Exam Limitations: No Limitations - Ebola screening Have you traveled outside of the country in the last 21 days: No Have you had contact with anyone from an Ebola affected area: No Have you been sick,other than usual withdrawal symptoms: No Do you have a fever: No - Review of Systems Constitutional: No Symptoms Reported EENT: reports: No Symptoms Reported Respiratory: reports: No Symptoms reported Cardiac: reports: No Symptoms Reported GI: reports: No Symptoms Reported : reports: No Symptoms Reported Musculoskeletal: reports: Back Pain Integumentary: reports: No Symptoms Reported Neuro: reports: No Symptoms reported Endocrine: reports: No Symptoms Reported Hematology: reports: No Symptoms Reported Psychiatric: reports: Judgement Intact, Orientated x3, Anxious Other Systems: Reviewed and Negative Patient History - Patient Medical History Hx Anemia: No Hx Asthma: No Hx Chronic Obstructive Pulmonary Disease (COPD): No Hx Cancer: No Hx Cardiac Disorders: No Hx Hypertension: Yes (non compliant with meds.) Hx Hypercholesterolemia: No Hx Pacemaker: No HX Cerebrovascular Accident: No Hx Seizures: No Hx Dementia: No Hx Diabetes: No Hx Gastrointestinal Disorders: No Hx Liver Disease: No Hx Genitourinary Disorders: No Hx Sexually Transmitted Disorders: No Hx Renal Disease (ESRD): No Hx Thyroid Disease: No Hx Human Immunodeficiency Virus (HIV): No (negative) Hx Hepatitis C: Yes (diagnosed 5 years ago, not treated) Hx Depression: Yes (On abilify) Hx Suicide Attempt: No (Denies) Hx Bipolar Disorder: No Hx Schizophrenia: No - Patient Surgical History Past Surgical History: No - PPD History Previous Implant?: Yes Documented Results: Negative w/proof Implanted On Prior [facility] Admission?: Yes Date: 12/20/16 PPD to be Administered?: Yes - Reproductive History Patient is a Female of Child Bearing Age (11 -55 yrs old): No - Smoking Cessation Smoking history: Current every day smoker Have you smoked in the past 12 months: Yes Aproximately how many cigarettes per day: 20 Cigars Per Day: 0 Hx Chewing Tobacco Use: No Initiated information on smoking cessation: Yes 'Breaking Loose' booklet given: 12/27/18 - Substance & Tx. History Hx Alcohol Use: Yes Hx Substance Use: Yes Substance Use Type: Alcohol, Cocaine, Heroin, Opiates Hx Substance Use Treatment: Yes - Substances abused Alcohol Substance route: Oral Frequency: Daily Amount used: 2-3 pints vodka Age of first use: 11 Date of last use: 12/27/18 Heroin Substance route: Injection Frequency: Daily Amount used: 1-2 buddle Age of first use: 38 Date of last use: 12/27/18 Cocaine Substance route: Inhalation Frequency: 1-2 times per week Amount used: $ 20.00 Age of first use: 11 Date of last use: 12/26/18 Family Disease History - Family Disease History Family Disease History: [place]: Father (prostate), Other: Mother (thyroid), Brother (hepatitis c) Admission Physical Exam BHS - Vital Signs Vital Signs: Vital Signs - 24 hr 12/27/18 12:08 Temperature 97.4 F L Pulse Rate 79 Respiratory 18 Rate Blood Pressure 144/89 - Physical General Appearance: Yes: Mild Distress HEENTM: Yes: Within Normal Limits Respiratory: Yes: Lungs Clear, No Respiratory Distress Neck: Yes: No masses,lesions,Nodules, Trachea in good position Breast: Yes: Breast Exam Deferred Cardiology: Yes: Regular Rhythm, Regular Rate Abdominal: Yes: Normal Bowel Sounds, Non Tender, Soft Genitourinary: Yes: Within Normal Limits Back: Yes: Normal Inspection Musculoskeletal: Yes: Within Normal Limits, full range of Motion, Gait Steady Extremities: Yes: Normal Capillary Refill, Swelling, Inflammation, Other (L leg swollen, red, warm to touch with necrotic wounds x 2) Neurological: Yes: Within Normal Limits, Fully Oriented, Alert, Motor Strength 5 /5 Integumentary: Yes: Normal Color, Warm, Erythema, Track Junior - Diagnostic (1) Cellulitis of left lower extremity Current Visit: Yes Status: Acute (2) Track junior due to intravenous drug abuse Current Visit: Yes Status: Acute (3) Alcohol dependence Current Visit: No Status: Chronic (4) Nicotine dependence Current Visit: No Status: Acute Qualifiers: Nicotine product type: cigarettes Substance use status: in withdrawal Qualified Code(s): F17.213 - Nicotine dependence, cigarettes, with withdrawal (5) Cocaine dependence Current Visit: No Status: Chronic (6) Xanax use disorder, mild Current Visit: No Status: Chronic Cleared for Admission [facility] - Detox or Rehab [facility] Level of Care: Medically Managed Detox Regimen/Protocol: Methadone/Librium Claeared for Rehab Admission: No Breathalyzer - Breathalyzer Breathalyzer: 0.088 Urine Drug Screen - Test Device Lot number: [id number] Expiration date: 07/24/20 - Control Is test valid?: Yes - Results Drug screen NEGATIVE: No Urine drug screen results: TISHA-Cocaine, FEN-Fentanyl, MOP-Opiates, MTD-Methadone , BZO-Benzodiazepines Inpatient Rehab Admission - Rehab Decision to Admit Inpatient rehab admission?: No
[2018-12-27] MEDS ORDERED: ACETAMINOPHEN 325 MG TABLET (FP) PO PRN (13:58)
[2018-12-27] MEDS ORDERED: cloNIDine HCL 0.1 MG TABLET PO PRN (13:58)
[2018-12-27] MEDS ORDERED: chlordiazePOXIDE HCL 10 MG CAPSULE PO PRN (13:58)
[2018-12-27] MEDS ORDERED: NICOTINE POLACRILEX 4 MG GUM BUC PRN (13:58)
[2018-12-27] MEDS ORDERED: ONDANSETRON *ODT* 4 MG TABLET SL PRN (13:58)
[2018-12-27] MEDS ORDERED: MAG HYDROX/AL HYDROX/SIMETH 30 ML UNIT-DOSE CUP PO PRN (13:58)
[2018-12-27] MEDS ORDERED: MAGNESIUM CITRATE 300 ML BOTTLE PO PRN (13:58)
[2018-12-27] MEDS ORDERED: MAGNESIUM HYDROX 2400MG/30ML ORAL SUSPENSION 30 ML CUP PO PRN (13:58)
[2018-12-27] MEDS ORDERED: MENTHOL/PHENOL 1 EACH UD MM PRN (13:58)
[2018-12-27] MEDS ORDERED: hydrOXYzine PAMOATE 25 MG CAPSULE (FP) PO PRN (13:58)
[2018-12-27] MEDS: chlordiazePOXIDE HCL 25 MG CAPSULE PO SCH ×2 (15:18→22:07)
[2018-12-27] MEDS: NICOTINE 21 MG/24 HOURS TOPICAL PATCH TD SCH (16:02)
[2018-12-27] MEDS: CEPHALEXIN MONOHYDRATE 500 MG CAPSULE (UD) PO SCH ×2 (17:41→23:16)
[2018-12-27] MEDS: ACETAMINOPHEN 325 MG TABLET (FP) PO PRN (20:40)
[2018-12-27] MEDS: THIAMINE HCL 100 MG TABLET (FP) PO SCH (22:06)
[2018-12-27] MEDS: MELATONIN 5 MG TABLETS PO PRN (22:08)
[2018-12-27] MEDS ORDERED: METHADONE HCL 10 MG TABLET (FOR DETOX USE ONLY) PO ONE (23:00)
[2018-12-28] MEDS: chlordiazePOXIDE HCL 25 MG CAPSULE PO SCH (06:46)
[2018-12-28] MEDS: CEPHALEXIN MONOHYDRATE 500 MG CAPSULE (UD) PO SCH ×4 (06:46→23:12)
[2018-12-28] MEDS: METHOCARBAMOL 500 MG TABLET PO PRN ×2 (06:49→13:49)
[2018-12-28] MEDS: ACETAMINOPHEN 325 MG TABLET (FP) PO PRN ×3 (06:50→22:04)
[2018-12-28] MEDS ORDERED: METHADONE HCL 5 MG TABLET (FOR DETOX USE ONLY) PO ONE (10:00)
[2018-12-28] MEDS ORDERED: cloNIDine HCL 0.1 MG TABLET PO PRN (10:16)
--- NOTE | 2018-12-28 10:17 | PN ---
S CIWA - CIWA Score Nausea/Vomitin-Mild Nausea/No Vomiting Muscle Tremors: 3 Anxiety: 4-Mod. Anxious/Guarded Agitation: 3 Paroxysmal Sweats: 1-Minimal Palms Moist Orientation: 1-Uncertain about Date Tacttile Disturbances: 0-None Auditory Disturbances: 0-None Visual Disturbances: 0-None Headache: 0-None Present CIWA-Ar Total Score: 13 BHS COWS - Scale Resting Pulse: 0= [place] 80 or Below Sweatin= Chills/Flushing Restless Observation: 1= Difficult to Sit Still Pupil Size: 0= Normal to Room Light Bone or Joint Aches: 1= Mild Discomfort Runny Nose/ Eye Tearin= Nasal Congestion GI Upset > 30mins: 1= Stomach Cramp Tremor Observation of Outstretched Hands: 1= Tremor [place], Not Seen Yawning Observation: 1= 1-2x During Session Anxiety or Irritability: 1=Feels Anxious/Irritable Goose Flesh Skin: 0=Smooth Skin COWS Score: 8 BHS Progress Note (SOAP) Subjective: long history of hypertensin x 15+ years treated with unknown medication begin amlopidine discuss risks of bp elevation Objective: 12/28/18 10:14 Vital Signs Temperature 97.0 F L 12/28/18 09:18 Pulse Rate 75 12/28/18 09:18 Respiratory Rate 18 12/28/18 09:18 Blood Pressure 165/90 12/28/18 09:18 O2 Sat by Pulse Oximetry (%) 12/28/18 10:14 lab pending Assessment: 12/28/18 10:14 alcohol and opiate withdrawal sx Plan: continue detox
[2018-12-28] MEDS: NICOTINE 21 MG/24 HOURS TOPICAL PATCH TD SCH (10:25)
[2018-12-28] MEDS: PRENATAL VITAMINS W/ FOLIC ACID TABLET (FP) PO SCH (10:25)
[2018-12-28] MEDS: amLODIPine BESYLATE 10 MG TABLET (FP) PO SCH (10:30)
[2018-12-28] MEDS: BISMUTH SUBSALICYLATE 524 MG/30 ML UD PO PRN ×2 (11:43→18:37)
[2018-12-28] MEDS: chlordiazePOXIDE 5 MG CAPSULE PO SCH ×2 (14:25→22:01)
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
[2018-12-28] MEDS: THIAMINE HCL 100 MG TABLET (FP) PO SCH (22:01)
[2018-12-28] MEDS: MELATONIN 5 MG TABLETS PO PRN (22:02)
[2018-12-29] MEDS: BISMUTH SUBSALICYLATE 524 MG/30 ML UD PO PRN ×2 (00:56→22:51)
[2018-12-29] MEDS ORDERED: chlordiazePOXIDE HCL 10 MG CAPSULE PO PRN (05:00)
[2018-12-29] MEDS: METHOCARBAMOL 500 MG TABLET PO PRN ×3 (07:14→22:02)
[2018-12-29] MEDS: chlordiazePOXIDE 5 MG CAPSULE PO SCH (07:14)
[2018-12-29] MEDS: CEPHALEXIN MONOHYDRATE 500 MG CAPSULE (UD) PO SCH ×4 (07:14→23:29)
[2018-12-29] MEDS: IBUPROFEN 400 MG TABLET (FP) PO PRN (07:15)
[2018-12-29] MEDS ORDERED: METHADONE HCL 10 MG TABLET (FOR DETOX USE ONLY) PO ONE (10:00)
[2018-12-29] MEDS: amLODIPine BESYLATE 10 MG TABLET (FP) PO SCH (10:08)
[2018-12-29] MEDS: PRENATAL VITAMINS W/ FOLIC ACID TABLET (FP) PO SCH (10:08)
[2018-12-29] MEDS: ARIPiprazole 5 MG TABLET (FP) PO SCH (10:08)
[2018-12-29] MEDS: NICOTINE 21 MG/24 HOURS TOPICAL PATCH TD SCH (10:08)
[2018-12-29 10:15] LABS: HEMATOCRIT 37.6 % (35.4-49); HEMOGLOBIN 12.3 GM/dL (11.7-16.9); MCH 29.6 pg (25.7-33.7); MCHC 32.7 g/dl (32.0-35.9); MEAN CELL VOLUME 90.7 fl (80-96); MEAN PLT VOLUME 8.9 fl (7.5-11.1); PLATELET COUNT 294 K/MM3 (134-434); RBC 4.15 M/mm3 (4.00-5.60); RDW 16.6 % (11.9-15.9); WHITE BLOOD COUNT 6.8 K/mm3 (4.0-10.0)
[2018-12-29 10:22] LABS: ALBUMIN 2.8 g/dl (3.4-5.0); ALK PHOS 106 U/L (45-117); ANION GAP 7 MMOL/L (8-16); BILIRUBIN,TOTAL 0.3 mg/dL (0.2-1); BLOOD UREA NITROGEN 10 mg/dL (7-18); CALCIUM 8.8 mg/dL (8.5-10.1); CHLORIDE 103 mmol/L (98-107); CO2 25 mmol/L (21-32); CREATININE 0.6 mg/dL (0.55-1.3); GLUCOSE,RANDOM 103 mg/dL (74-106); SGOT/AST 50 U/L (15-37); SGPT/ALT 49 U/L (13-61); SODIUM 135 mmol/L (136-145); TOT PROT 7.6 g/dl (6.4-8.2)
--- NOTE | 2018-12-29 13:06 | PN ---
S CIWA - CIWA Score Nausea/Vomitin-Mild Nausea/No Vomiting Muscle Tremors: 1-None Visible, but [place] Anxiety: 2 Agitation: 2 Paroxysmal Sweats: 1-Minimal Palms Moist Orientation: 1-Uncertain about Date Tacttile Disturbances: 0-None Auditory Disturbances: 0-None Visual Disturbances: 0-None Headache: 1-Very Mild CIWA-Ar Total Score: 9 BHS COWS - Scale Resting Pulse: 0= [place] 80 or Below Sweatin= Chills/Flushing Restless Observation: 0= Sits Still Pupil Size: 0= Normal to Room Light Bone or Joint Aches: 1= Mild Discomfort Runny Nose/ Eye Tearin= None GI Upset > 30mins: 1= Stomach Cramp Tremor Observation of Outstretched Hands: 1= Tremor [place], Not Seen Yawning Observation: 0= None Anxiety or Irritability: 1=Feels Anxious/Irritable Goose Flesh Skin: 0=Smooth Skin COWS Score: 5 BHS Progress Note (SOAP) Subjective: feeling better social with peers in day room discuss aftercare with staff Objective: 12/29/18 13:07 Vital Signs Temperature 98 F 12/29/18 13:03 Pulse Rate 72 12/29/18 13:03 Respiratory Rate 18 12/29/18 13:03 Blood Pressure 148/84 12/29/18 13:03 O2 Sat by Pulse Oximetry (%) Laboratory Last Values WBC 6.8 K/mm3 (4.0-10.0) 12/29/18 07:00 RBC 4.15 M/mm3 (4.00-5.60) 12/29/18 07:00 Hgb 12.3 GM/dL (11.7-16.9) 12/29/18 07:00 Hct 37.6 % (35.4-49) 12/29/18 07:00 MCV 90.7 fl (80-96) 12/29/18 07:00 MCH 29.6 pg (25.7-33.7) 12/29/18 07:00 MCHC 32.7 g/dl (32.0-35.9) 12/29/18 07:00 RDW 16.6 % (11.9-15.9) H 12/29/18 07:00 Plt Count 294 K/MM3 (134-434) 12/29/18 07:00 MPV 8.9 fl (7.5-11.1) 12/29/18 07:00 Sodium 135 mmol/L (136-145) L 12/29/18 07:00 Potassium 4.0 mmol/L (3.5-5.1) 12/29/18 07:00 Chloride 103 mmol/L (98-107) 12/29/18 07:00 Carbon Dioxide 25 mmol/L (21-32) 12/29/18 07:00 Anion Gap 7 MMOL/L (8-16) L 12/29/18 07:00 BUN 10 mg/dL (7-18) 12/29/18 07:00 Creatinine 0.6 mg/dL (0.55-1.3) 12/29/18 07:00 Creat Clearance w eGFR 145.70 (>60) 12/29/18 07:00 Random Glucose 103 mg/dL (74-106) 12/29/18 07:00 Calcium 8.8 mg/dL (8.5-10.1) 12/29/18 07:00 Total Bilirubin 0.3 mg/dL (0.2-1) 12/29/18 07:00 AST 50 U/L (15-37) H 12/29/18 07:00 ALT 49 U/L (13-61) 12/29/18 07:00 Alkaline Phosphatase 106 U/L (45-117) 12/29/18 07:00 Total Protein 7.6 g/dl (6.4-8.2) 12/29/18 07:00 Albumin 2.8 g/dl (3.4-5.0) L 12/29/18 07:00 lab noted discuss risks of bp elevation strong recommend follow up with primary care provider for bp monitoring 12/29/18 13:11 Assessment: 12/29/18 13:13 mild opiate withdrawal sx Plan: continue detox
[2018-12-29] MEDS: chlordiazePOXIDE HCL 10 MG CAPSULE PO SCH ×2 (14:11→22:01)
[2018-12-29] MEDS: MELATONIN 5 MG TABLETS PO PRN (22:01)
[2018-12-29] MEDS: THIAMINE HCL 100 MG TABLET (FP) PO SCH (22:01)
[2018-12-30] MEDS: IBUPROFEN 400 MG TABLET (FP) PO PRN (05:47)
[2018-12-30] MEDS ORDERED: METHADONE HCL 5 MG TABLET (FOR DETOX USE ONLY) PO ONE (06:00)
[2018-12-30] MEDS: CEPHALEXIN MONOHYDRATE 500 MG CAPSULE (UD) PO SCH (06:08)
[2018-12-30] MEDS: chlordiazePOXIDE HCL 10 MG CAPSULE PO SCH (06:09)
[2018-12-30] MEDS: ARIPiprazole 5 MG TABLET (FP) PO SCH (09:32)
[2018-12-30] MEDS: PRENATAL VITAMINS W/ FOLIC ACID TABLET (FP) PO SCH (09:32)
[2018-12-30] MEDS: NICOTINE 21 MG/24 HOURS TOPICAL PATCH TD SCH (09:32)
[2018-12-30] MEDS: amLODIPine BESYLATE 10 MG TABLET (FP) PO SCH (09:32)
[2018-12-30] MEDS: METHOCARBAMOL 500 MG TABLET PO PRN (09:33)
[2018-12-30 10:16] VITALS: BP 150/103; PULSE 107; TEMP 98.6
--- NOTE | 2018-12-30 15:49 | DS ---
[facility] Detox Discharge Summary Admission Date: 12/27/18 Discharge Date: 12/30/18 - History Present History: Alcohol Dependence, Opioid Dependence Additional Comments: 43 years old male admitted on 12/27/18 for alcohol and opiate withdrawal stabilization feeling better today preferring to begin alcohol and opiate rehab today alert no acute distress aftercare [facility] Pertinent Past History: bring in mediation list and lab report to [facility] up appointment - Physical Exam Results Vital Signs: Vital Signs Temperature 98.6 F 12/30/18 10:16 Pulse Rate 107 H 12/30/18 10:16 Respiratory Rate 20 12/30/18 10:16 Blood Pressure 150/103 H 12/30/18 10:16 O2 Sat by Pulse Oximetry (%) Pertinent Admission Physical Exam Findings: alcohol and opiate withdrawal sx Laboratory Last Values WBC 6.8 K/mm3 (4.0-10.0) 12/29/18 07:00 RBC 4.15 M/mm3 (4.00-5.60) 12/29/18 07:00 Hgb 12.3 GM/dL (11.7-16.9) 12/29/18 07:00 Hct 37.6 % (35.4-49) 12/29/18 07:00 MCV 90.7 fl (80-96) 12/29/18 07:00 MCH 29.6 pg (25.7-33.7) 12/29/18 07:00 MCHC 32.7 g/dl (32.0-35.9) 12/29/18 07:00 RDW 16.6 % (11.9-15.9) H 12/29/18 07:00 Plt Count 294 K/MM3 (134-434) 12/29/18 07:00 MPV 8.9 fl (7.5-11.1) 12/29/18 07:00 Sodium 135 mmol/L (136-145) L 12/29/18 07:00 Potassium 4.0 mmol/L (3.5-5.1) 12/29/18 07:00 Chloride 103 mmol/L (98-107) 12/29/18 07:00 Carbon Dioxide 25 mmol/L (21-32) 12/29/18 07:00 Anion Gap 7 MMOL/L (8-16) L 12/29/18 07:00 BUN 10 mg/dL (7-18) 12/29/18 07:00 Creatinine 0.6 mg/dL (0.55-1.3) 12/29/18 07:00 Creat Clearance w eGFR 145.70 (>60) 12/29/18 07:00 Random Glucose 103 mg/dL (74-106) 12/29/18 07:00 Calcium 8.8 mg/dL (8.5-10.1) 12/29/18 07:00 Total Bilirubin 0.3 mg/dL (0.2-1) 12/29/18 07:00 AST 50 U/L (15-37) H 12/29/18 07:00 ALT 49 U/L (13-61) 12/29/18 07:00 Alkaline Phosphatase 106 U/L (45-117) 12/29/18 07:00 Total Protein 7.6 g/dl (6.4-8.2) 12/29/18 07:00 Albumin 2.8 g/dl (3.4-5.0) L 12/29/18 07:00 RPR Titer Nonreactive (NONREACTIVE) 12/29/18 07:00 HIV 1&2 Antibody Screen Negative 12/29/18 07:00 HIV P24 Antigen Negative 12/29/18 07:00 lab noted - Treatment Hospital Course: Detox Protocol Followed, Detoxed Safely, Responded well, Discharged Condition Good, Rehab Referral Accepted Patient has Accepted a Rehab Referral to: [facility] - Medication Discharge Medications: Ambulatory Orders Aripiprazole [Abilify -] 5 mg PO DAILY #30 tablet 12/19/16 cloNIDine HCL [Catapres -] 0.1 mg PO BID #30 tablet 12/23/16 Lorazepam [Ativan] 2 mg PO BID PRN 12/27/18 Zolpidem Tartrate [Ambien] 5 mg PO HS 12/27/18 Amlodipine Besylate [Norvasc -] 10 mg PO DAILY #30 tablet 12/29/18 Amlodipine Besylate [Norvasc -] 10 mg PO DAILY #30 tablet 12/29/18 Cephalexin Monohydrate [Keflex -] 500 mg PO Q6HPO #20 capsule 12/29/18 - Diagnosis (1) Alcohol dependence with uncomplicated withdrawal Status: Acute (2) Opioid dependence with withdrawal Status: Acute (3) Hepatitis C antibody test positive Status: Chronic (4) Hypertension Status: Chronic Qualifiers: Hypertension type: essential hypertension Qualified Code(s): I10 - Essential (primary) hypertension (5) Nicotine dependence Status: Acute Qualifiers: Nicotine product type: cigarettes Substance use status: in withdrawal Qualified Code(s): F17.213 - Nicotine dependence, cigarettes, with withdrawal - AMA Did Patient Leave Against Medical Advice: No
== END 2018-12-30 10:26 | disposition home or self-care (01) | DRG 773 ==
LOC: YASAS 11:06 → Y3N 14:02
PROVIDERS: ADMIT Surgery; ATTEND Surgery
PROC: HZ2ZZZZ Detoxification Services for Substance Abuse Treatment (ICD-10-PCS; principal; 2018-12-27)
DX: F11.23 Opioid dependence with withdrawal (principal); F10.230 Alcohol dependence with withdrawal, uncomplicated; F14.20 Cocaine dependence, uncomplicated; F13.90 Sedative, hypnotic, or anxiolytic use, unspecified, uncomplicated; F17.213 Nicotine dependence, cigarettes, with withdrawal; I10 Essential (primary) hypertension; B18.2 Chronic viral hepatitis C; L90.5 Scar conditions and fibrosis of skin; Z91.14 Patient's other noncompliance with medication regimen
CPT/HCPCS: 36415; 80053; 85027; 86593; 87389; J0735

== ENCOUNTER 2019-05-06 11:50 | Inpatient (IN) | payer BC | END 2019-05-10 15:16 | disposition other institution (70) | LOC: YASAS 11:50 → Y6N 16:44 ==

== ENCOUNTER 2020-03-05 08:40 | Inpatient (IN) | payer BC ==
--- NOTE | 2020-03-05 09:14 | BHS.RME ---
Substance Use & Tx History - Substance Use History Heroin Substance amount: 10 bags Frequency of use: Daily Substance route: Injection (ex: intravenous or skin popping) Date of Last Use: 03/04/20 Alcohol Substance amount: 3 pints Frequency of use: Daily Substance route: Oral Date of Last Use: 03/04/20 Cannabis Substance amount: 3 joints Substance route: Smoking Date of Last Use: 03/04/20 - Last Treatment Date of last treatment: 05/06/19 Where was last treatment: Detox Physical/Psych/Mental Status - Behavior General Behavior: Increased activity (restlessness, agitation) Eye Contact: Normal Other Behaviors: Mannerisms - Cooperativeness Cooperativeness: Cooperative - Thinking Thought Processes: Tight, Logical, Goal Directed Thought content: Future oriented - Physical Health Problems Is patient presently having any pain?: No Does patient presently have any injuries (include location): No Does patient currently have a fever: No COWS - Scale Resting Pulse: 0= [place] 80 or Below Sweatin= Chills/Flushing Restless Observation: 0= Sits Still Pupil Size: 1= Pupils >than Normal Bone or Joint Aches: 1= Mild Discomfort Runny Nose/ Eye Tearin= Nasal Congestion GI Upset > 30mins: 2= Nausea/Diarrhea Tremor Observation: 1= Tremor [place], Not Seen Yawning Observation: 1= 1-2x During Session Anxiety or Irritability: 2=Irritable/Anxious Goose Flesh Skin: 3=Piloerection COWS Score: 13 CIWA Nausea/Vomitin Muscle Tremors: 2 Anxiety: 2 Agitation: 2 Paroxysmal Sweats: 2 Orientation: 0-Oriented Tacttile Disturbances: 2-Mild Itch/Numbness/Burn Auditory Disturbances: 1-Very Mild Visual Disturbances: 1-Very Mild Sensitivity Headache: 1-Very Mild CIWA-Ar Total Score: 15 Treatment Recommendation - Level of Care Level of Care: Opioid Treatment Program (OTP)
[2020-03-05 09:18] VITALS: BMI 26.8
--- NOTE | 2020-03-05 09:22 | HP ---
COWS - Scale Resting Pulse: 0= [place] 80 or Below Sweatin= Chills/Flushing Restless Observation: 0= Sits Still Pupil Size: 1= Pupils >than Normal Bone or Joint Aches: 1= Mild Discomfort Runny Nose/ Eye Tearin= Nasal Congestion GI Upset > 30mins: 2= Nausea/Diarrhea Tremor Observation: 1= Tremor [place], Not Seen Yawning Observation: 1= 1-2x During Session Anxiety or Irritability: 2=Irritable/Anxious Goose Flesh Skin: 3=Piloerection COWS Score: 13 CIWA Score Nausea/Vomitin Muscle Tremors: 2 Anxiety: 2 Agitation: 2 Paroxysmal Sweats: 2 Orientation: 0-Oriented Tacttile Disturbances: 2-Mild Itch/Numbness/Burn Auditory Disturbances: 1-Very Mild Visual Disturbances: 1-Very Mild Sensitivity Headache: 1-Very Mild CIWA-Ar Total Score: 15 - Admission Criteria [facility] Guidelines: Admission for Medically Managed Detox: Requires at least one of the followin. CIWA greater than 12 2. Seizures within the past 24 hours 3. Delirium tremens within the past 24 hours 4. Hallucinations within the past 24 hours 5. Acute intervention needed for co occurring medical disorder 6. Acute intervention needed for co occurring psychiatric disorder 7. Severe withdrawal that cannot be handled at a lower level of care (continued vomiting, continued diarrhea, abnormal vital signs) requiring intravenous medication and/or fluids 8. Patient presents the following: CIWA greater than 12 Admission Criteria Met: Admission criteria met Admitting History and Physical - Smoking History Smoking history: Current every day smoker Have you smoked in the past 12 months: Yes Aproximately how many cigarettes per day: 20 - Alcohol/Substance Use Hx Alcohol Use: Yes Admission ROS [facility] Chief Complaint: Alcohol and heroin detox to clean myself up Allergies/Adverse Reactions: Allergies Allergy/AdvReac Type Severity Reaction Status Date / Time No Known Allergies Allergy Verified 03/05/20 09:18 History of Present Illness: 44 year old man presents from [facility] where he was observed last night for alcohol intoxication. He reports several blackouts, denies seizures, reports OD on heroin, last episode 2 months. He reports he has narcan, always does heroin with his buddies. Exam Limitations: No Limitations - Ebola screening Have you traveled outside of the country in the last 21 days: No Have you had contact with anyone from an Ebola affected area: No Have you been sick,other than usual withdrawal symptoms: No Do you have a fever: No - Review of Systems Constitutional: Chills, Loss of Appetite, Changes in sleep, Unintentional Wgt. Loss EENT: reports: Blurred Vision (requires eye glasses), Nose Congestion Respiratory: reports: No Symptoms reported Cardiac: reports: No Symptoms Reported GI: reports: Nausea, Poor Appetite, Poor Fluid Intake, Abdominal cramping : reports: No Symptoms Reported Musculoskeletal: reports: Back Pain, Muscle Pain, Muscle Weakness Integumentary: reports: Sweating Neuro: reports: Headache, Numbness, Tremors Endocrine: reports: No Symptoms Reported Hematology: reports: No Symptoms Reported Psychiatric: reports: Anxious, Depressed Other Systems: Reviewed and Negative Patient History - Patient Medical History Hx Anemia: No Hx Asthma: No Hx Chronic Obstructive Pulmonary Disease (COPD): No Hx Cancer: No Hx Cardiac Disorders: No Hx Hypertension: Yes Hx Hypercholesterolemia: No Hx Pacemaker: No HX Cerebrovascular Accident: No Hx Seizures: No Hx Dementia: No Hx Diabetes: No Hx Gastrointestinal Disorders: No Hx Liver Disease: No Hx Genitourinary Disorders: No Hx Sexually Transmitted Disorders: No Hx Renal Disease (ESRD): No Hx Thyroid Disease: No Hx Human Immunodeficiency Virus (HIV): No Hx Hepatitis C: Yes (not treated) Hx Depression: Yes Hx Suicide Attempt: No Hx Bipolar Disorder: No Hx Schizophrenia: No - Patient Surgical History Past Surgical History: No Other Surgical History: Left hand, 2nd digit s/p incision, skin graft to right thigh Anesthesia Reaction: No - PPD History Previous Implant?: Yes Documented Results: Negative w/proof Implanted On Prior [facility] Admission?: Yes Date: 12/29/18 Results: NEGATIVE PPD to be Administered?: Yes - Smoking Cessation Smoking history: Current every day smoker Have you smoked in the past 12 months: Yes Aproximately how many cigarettes per day: 10 Cigars Per Day: 0 Hx Chewing Tobacco Use: No Initiated information on smoking cessation: Yes 'Breaking Loose' booklet given: 03/05/20 Admission Physical Exam BHS - Physical General Appearance: Yes: Disheveled, Sweating, Anxious HEENTM: Yes: Normal ENT Inspection, Normocephalic, Normal Voice, Pharynx Normal Respiratory: Yes: Chest Non-Tender, Lungs Clear, No Respiratory Distress, No Accessory Muscle Use Neck: Yes: No masses,lesions,Nodules, Supple Breast: Yes: Breast Exam Deferred Cardiology: Yes: Regular Rhythm, Regular Rate, S1, S2 Abdominal: Yes: Normal Bowel Sounds, Non Tender, Soft Genitourinary: Yes: Within Normal Limits Back: Yes: Normal Inspection Musculoskeletal: Yes: full range of Motion, Pelvis Stable, Back pain, Other (left 2nd digit surgical scar s/p finger reattachment) Extremities: Yes: Normal Range of Motion, Tremors Neurological: Yes: bindery machine tender II-XII NML intact, Fully Oriented, Alert, Normal Mood/Affect, Normal Response Integumentary: Yes: Track Schwab (chuck. LEs), Other (right thigh surgical scar s/p I&D with skin graft for infected track site. left leg scar) Lymphatic: Yes: Within Normal Limits - Diagnostic (1) Alcohol dependence with uncomplicated withdrawal Current Visit: Yes Status: Acute (2) Cannabis dependence Current Visit: Yes Status: Chronic (3) Hypertension Current Visit: Yes Status: Chronic Qualifiers: Hypertension type: essential hypertension Qualified Code(s): I10 - Essential (primary) hypertension (4) Nicotine dependence Current Visit: Yes Status: Chronic Qualifiers: Nicotine product type: cigarettes Substance use status: uncomplicated Qualified Code(s): F17.210 - Nicotine dependence, cigarettes, uncomplicated (5) Opioid dependence with withdrawal Current Visit: Yes Status: Acute Cleared for Admission [facility] - Detox or Rehab [facility] Level of Care: Medically Managed Detox Regimen/Protocol: Methadone/Librium Claeared for Rehab Admission: No Breathalyzer - Breathalyzer Breathalyzer: 0.028 Urine Drug Screen - Test Device Lot number: [id number] Expiration date: 01/22/21 - Control Is test valid?: Yes - Results Drug screen NEGATIVE: No Urine drug screen results: TISHA-Cocaine, MOP-Opiates Inpatient Rehab Admission - Rehab Decision to Admit Inpatient rehab admission?: No
[2020-03-05] MEDS ORDERED: chlordiazePOXIDE HCL 25 MG CAPSULE PO PRN (09:32)
[2020-03-05] MEDS ORDERED: IBUPROFEN 400 MG TABLET (FP) PO PRN (09:32)
[2020-03-05] MEDS ORDERED: MAGNESIUM HYDROX 2400MG/30ML ORAL SUSPENSION 30 ML CUP PO PRN (09:32)
[2020-03-05] MEDS ORDERED: ACETAMINOPHEN 325 MG TABLET (FP) PO PRN ×2 (09:32)
[2020-03-05] MEDS ORDERED: cloNIDine HCL 0.1 MG TABLET PO PRN (09:32)
[2020-03-05] MEDS ORDERED: MENTHOL/PHENOL 1 EACH UD MM PRN (09:32)
[2020-03-05] MEDS ORDERED: MAG HYDROX/AL HYDROX/SIMETH 30 ML UNIT-DOSE CUP PO PRN (09:32)
[2020-03-05] MEDS ORDERED: METHADONE HCL 10 MG TABLET (FOR DETOX USE ONLY) PO ONE (09:32)
[2020-03-05] MEDS ORDERED: MAGNESIUM CITRATE 300 ML BOTTLE PO PRN (09:32)
[2020-03-05] MEDS ORDERED: NICOTINE POLACRILEX 2 MG GUM BUC PRN (09:32)
[2020-03-05] MEDS ORDERED: amLODIPine BESYLATE 10 MG TABLET (FP) PO SCH (10:00)
[2020-03-05] MEDS: PRENATAL VITAMINS W/ FOLIC ACID TABLET (FP) PO SCH (10:33)
[2020-03-05] MEDS: NICOTINE 7 MG/24 HOURS TOPICAL PATCH TD SCH (10:33)
[2020-03-05] MEDS: chlordiazePOXIDE HCL 25 MG CAPSULE PO SCH ×3 (10:35→22:09)
[2020-03-05 11:28] LABS: HEMOGLOBIN 13.7 GM/dL (11.7-16.9); MCH 29.8 pg (25.7-33.7); MCHC 32.8 g/dl (32.0-35.9); MEAN CELL VOLUME 90.8 fl (80-96); MEAN PLT VOLUME 9.2 fl (7.5-11.1); PLATELET COUNT 169 K/MM3 (134-434); RBC 4.62 M/mm3 (4.00-5.60); RDW 19.2 % (11.9-15.9); WHITE BLOOD COUNT 6.1 K/mm3 (4.0-10.0)
[2020-03-05 11:39] LABS: ALBUMIN 3.1 g/dl (3.4-5.0); BILIRUBIN,TOTAL 0.8 mg/dL (0.2-1); BLOOD UREA NITROGEN 7.7 mg/dL (7-18); CALCIUM 8.7 mg/dL (8.5-10.1); CREATININE 0.6 mg/dL (0.55-1.3); POTASSIUM 4.3 mmol/L (3.5-5.1); TOT PROT 7.4 g/dl (6.4-8.2)
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
[2020-03-05] MEDS: MELATONIN 5 MG TABLETS PO SCH (22:09)
[2020-03-05] MEDS: THIAMINE HCL 100 MG TABLET (FP) PO SCH (22:09)
[2020-03-05] MEDS: METHOCARBAMOL 500 MG TABLET PO PRN (23:59)
[2020-03-06] MEDS: BISMUTH SUBSALICYLATE 524 MG/30 ML UD PO PRN (00:49)
[2020-03-06] MEDS: chlordiazePOXIDE HCL 25 MG CAPSULE PO SCH (05:12)
[2020-03-06] MEDS ORDERED: METHADONE HCL 10 MG TABLET (FOR DETOX USE ONLY) ONE (09:08)
[2020-03-06] MEDS ORDERED: METHADONE HCL 5 MG TABLET (FOR DETOX USE ONLY) ONE (09:09)
--- NOTE | 2020-03-06 09:47 | PN ---
S CIWA - CIWA Score Nausea/Vomitin-Mild Nausea/No Vomiting Muscle Tremors: 3 Anxiety: 3 Agitation: 1-Slight > Activity Paroxysmal Sweats: 1-Minimal Palms Moist Orientation: 0-Oriented Tacttile Disturbances: 0-None Auditory Disturbances: 0-None Visual Disturbances: 1-Very Mild Sensitivity Headache: 2-Mild CIWA-Ar Total Score: 12 BHS COWS - Scale Resting Pulse: 0= [place] 80 or Below Sweatin= Chills/Flushing Restless Observation: 0= Sits Still Pupil Size: 1= Pupils >than Normal Bone or Joint Aches: 1= Mild Discomfort Runny Nose/ Eye Tearin= None GI Upset > 30mins: 2= Nausea/Diarrhea Tremor Observation of Outstretched Hands: 2= Slight Tremor Visible Yawning Observation: 0= None Anxiety or Irritability: 2=Irritable/Anxious Goose Flesh Skin: 3=Piloerection COWS Score: 12 S Progress Note (SOAP) Subjective: 44 years old male admitted on 03/05/20 for alcohol and opiate withdrawal sx management treating with librium and methadone detox regiment Vital Signs - 24 hr 03/05/20 03/05/20 03/05/20 10:07 13:09 17:23 Temperature 97.9 F 96.9 F L 97.7 F Pulse Rate 76 73 86 Respiratory 18 18 18 Rate Blood Pressure 150/92 136/67 146/95 O2 Sat by Pulse 98 99 Oximetry (%) 03/05/20 03/05/20 03/06/20 20:49 22:55 00:57 Temperature 97.5 F L 97.5 F L Pulse Rate 69 70 62 Respiratory 18 18 Rate Blood Pressure 167/101 H 157/101 H 131/82 O2 Sat by Pulse 100 97 Oximetry (%) 03/06/20 03/06/20 03/06/20 06:07 08:02 08:59 Temperature 97.0 F L 97.2 F L 96.9 F L Pulse Rate 66 75 80 Respiratory 18 18 18 Rate Blood Pressure 156/91 150/105 H 138/96 O2 Sat by Pulse 100 99 Oximetry (%) long history of bp elevation treating with amlodipine 10 mg po daily clonidine 0.1 mg po prn Objective: 03/06/20 09:49 Laboratory Tests 03/05/20 03/05/2003/05/20 09:40 09:40 09:40 WBC 6.1 RBC 4.62 Hgb 13.7 Hct 42.0 MCV 90.8 MCH 29.8 MCHC 32.8 RDW 19.2 H Plt Count 169 D MPV 9.2 D Sodium 135 L Potassium 4.3 Chloride 98 Carbon Dioxide 28 Anion Gap 9 BUN 7.7 Creatinine 0.6 Est GFR (CKD-EPI)AfAm 139.75 Est GFR (CKD-EPI)NonAf 120.58 Random Glucose 109 H Calcium 8.7 Total Bilirubin 0.8 AST 132 H ALT 83 H Alkaline Phosphatase 125 H Total Protein 7.4 Albumin 3.1 L Syphilis Serology Non-reactive ast elevation discontinue librium discontinue tylenal begin ativan alcohol detox regiment 03/06/20 09:54 Assessment: 03/06/20 09:54 alcohol and opiate withdrawal Plan: ativan and methadone regiments
[2020-03-06] MEDS ORDERED: cloNIDine HCL 0.1 MG TABLET PO PRN (09:49)
[2020-03-06] MEDS ORDERED: LORazepam 1 MG TABLET PO PRN (09:52)
[2020-03-06] MEDS ORDERED: METHADONE (DETOX) 20 MG, METHADONE (DETOX) 5 MG PO ONE (10:00)
[2020-03-06] MEDS: PRENATAL VITAMINS W/ FOLIC ACID TABLET (FP) PO SCH (10:12)
[2020-03-06] MEDS: amLODIPine BESYLATE 10 MG TABLET (FP) PO SCH (10:12)
[2020-03-06] MEDS: NICOTINE 7 MG/24 HOURS TOPICAL PATCH TD SCH (10:55)
[2020-03-06] MEDS: LORazepam 2 MG TABLET PO SCH ×3 (11:43→22:06)
[2020-03-06] MEDS: MELATONIN 5 MG TABLETS PO SCH (22:06)
[2020-03-06] MEDS: THIAMINE HCL 100 MG TABLET (FP) PO SCH (22:06)
[2020-03-07] MEDS ORDERED: chlordiazePOXIDE HCL 25 MG CAPSULE PO SCH (05:00)
[2020-03-07] MEDS: LORazepam 2 MG TABLET PO SCH ×4 (05:06→22:06)
[2020-03-07] MEDS: BISMUTH SUBSALICYLATE 524 MG/30 ML UD PO PRN (05:09)
--- NOTE | 2020-03-07 09:48 | PN ---
S CIWA - CIWA Score Nausea/Vomitin-Mild Nausea/No Vomiting Muscle Tremors: 2 Anxiety: 2 Agitation: 1-Slight > Activity Paroxysmal Sweats: 1-Minimal Palms Moist Orientation: 0-Oriented Tacttile Disturbances: 0-None Auditory Disturbances: 0-None Visual Disturbances: 2-Mild Sensitivity Headache: 0-None Present CIWA-Ar Total Score: 9 BHS COWS - Scale Resting Pulse: 1= [place] 81-100 Sweatin= Chills/Flushing Restless Observation: 0= Sits Still Pupil Size: 1= Pupils >than Normal Bone or Joint Aches: 1= Mild Discomfort Runny Nose/ Eye Tearin= None GI Upset > 30mins: 2= Nausea/Diarrhea Tremor Observation of Outstretched Hands: 2= Slight Tremor Visible Yawning Observation: 0= None Anxiety or Irritability: 1=Feels Anxious/Irritable Goose Flesh Skin: 0=Smooth Skin COWS Score: 9 S Progress Note (SOAP) Subjective: 43 years old male admitted on 03/05/20 for alcohol and opiate withdrawal sx management treating with ativan and methadone detox regiments feeling ok today ate breakfast in room social with peers in day room Vital Signs - 24 hr 03/06/20 03/06/20 03/06/20 12:30 14:09 16:54 Temperature 96.0 F L 98.0 F Pulse Rate 98 H 81 Respiratory 18 18 Rate Blood Pressure 120/87 130/81 O2 Sat by Pulse 99 Oximetry (%) 03/06/20 03/07/20 03/07/20 20:30 05:44 08:43 Temperature 97.5 F L 97.5 F L 97.1 F L Pulse Rate 87 102 H 94 H Respiratory 18 18 18 Rate Blood Pressure 123/92 118/87 120/80 O2 Sat by Pulse 100 98 Oximetry (%) discussing aftercare with staff anxious about rehab program [facility] Objective: 03/07/20 10:06 Laboratory Tests 03/05/20 03/05/20 03/05/20 09:40 09:40 09:40 WBC 6.1 RBC 4.62 Hgb 13.7 Hct 42.0 MCV 90.8 MCH 29.8 MCHC 32.8 RDW 19.2 H Plt Count 169 D MPV 9.2 D Sodium 135 L Potassium 4.3 Chloride 98 Carbon Dioxide 28 Anion Gap 9 BUN 7.7 Creatinine 0.6 Est GFR (CKD-EPI)AfAm 139.75 Est GFR (CKD-EPI)NonAf 120.58 Random Glucose 109 H Calcium 8.7 Total Bilirubin 0.8 AST 132 H ALT 83 H Alkaline Phosphatase 125 H Total Protein 7.4 Albumin 3.1 L Syphilis Serology Non-reactive COVID-19 (FRANCY) 03/05/20 09:40 WBC RBC Hgb Hct MCV MCH MCHC RDW Plt Count MPV Sodium Potassium Chloride Carbon Dioxide Anion Gap BUN Creatinine Est GFR (CKD-EPI)AfAm Est GFR (CKD-EPI)NonAf Random Glucose Calcium Total Bilirubin AST ALT Alkaline Phosphatase Total Protein Albumin Syphilis Serology COVID-19 (FRANCY) Not detected ast elevation repeat on 03/09/20 Assessment: 03/07/20 10:07 alcohol and opiate withdrawal Plan: ativan and methadone regiment
[2020-03-07] MEDS ORDERED: METHADONE HCL 10 MG TABLET (FOR DETOX USE ONLY) PO ONE (10:00)
[2020-03-07] MEDS: NICOTINE 7 MG/24 HOURS TOPICAL PATCH TD SCH (10:18)
[2020-03-07] MEDS: amLODIPine BESYLATE 10 MG TABLET (FP) PO SCH (10:18)
[2020-03-07] MEDS: PRENATAL VITAMINS W/ FOLIC ACID TABLET (FP) PO SCH (10:18)
[2020-03-07] MEDS: METHOCARBAMOL 500 MG TABLET PO PRN (10:18)
[2020-03-07] MEDS: THIAMINE HCL 100 MG TABLET (FP) PO SCH (22:07)
[2020-03-07] MEDS: MELATONIN 5 MG TABLETS PO SCH (22:07)
[2020-03-08] MEDS ORDERED: chlordiazePOXIDE HCL 10 MG CAPSULE PO PRN
[2020-03-08] MEDS ORDERED: chlordiazePOXIDE HCL 10 MG CAPSULE PO SCH (05:00)
[2020-03-08] MEDS: LORazepam 1 MG TABLET PO SCH ×4 (05:31→22:07)
[2020-03-08] MEDS ORDERED: METHADONE HCL 5 MG TABLET (FOR DETOX USE ONLY) ONE (09:08)
[2020-03-08] MEDS ORDERED: METHADONE HCL 10 MG TABLET (FOR DETOX USE ONLY) ONE (09:08)
[2020-03-08] MEDS: NICOTINE 7 MG/24 HOURS TOPICAL PATCH TD SCH (09:31)
[2020-03-08] MEDS: amLODIPine BESYLATE 10 MG TABLET (FP) PO SCH (09:32)
[2020-03-08] MEDS: PRENATAL VITAMINS W/ FOLIC ACID TABLET (FP) PO SCH (09:32)
[2020-03-08] MEDS ORDERED: METHADONE (DETOX) 10 MG, METHADONE (DETOX) 5 MG PO ONE (10:00)
[2020-03-08] MEDS ORDERED: cloNIDine HCL 0.1 MG TABLET PO PRN (11:01)
--- NOTE | 2020-03-08 11:06 | PN ---
S CIWA - CIWA Score Nausea/Vomitin-Mild Nausea/No Vomiting Muscle Tremors: 2 Anxiety: 2 Agitation: 1-Slight > Activity Paroxysmal Sweats: No Perspiration Orientation: 0-Oriented Tacttile Disturbances: 0-None Auditory Disturbances: 0-None Visual Disturbances: 0-None Headache: 0-None Present CIWA-Ar Total Score: 6 S COWS - Scale Resting Pulse: 1= [place] 81-100 Sweatin= No chills or Flushing Restless Observation: 0= Sits Still Pupil Size: 1= Pupils >than Normal Bone or Joint Aches: 1= Mild Discomfort Runny Nose/ Eye Tearin= None GI Upset > 30mins: 0= None Tremor Observation of Outstretched Hands: 2= Slight Tremor Visible Yawning Observation: 0= None Anxiety or Irritability: 1=Feels Anxious/Irritable Goose Flesh Skin: 0=Smooth Skin COWS Score: 6 S Progress Note (SOAP) Subjective: 44 years old male admitted on 03/05/20 for alcohol and opiate withdrawal sx management treating with ativan and methadone regiments ate breakfast in room social with peers in day room Vital Signs - 24 hr 03/07/20 03/07/20 03/07/20 12:51 16:35 20:32 Temperature 97.2 F L 97.5 F L 97.1 F L Pulse Rate 99 H 90 85 Respiratory 18 18 18 Rate Blood Pressure 122/94 128/87 107/74 O2 Sat by Pulse 98 98 100 Oximetry (%) 03/08/20 06:11 Temperature 97.5 F L Pulse Rate 74 Respiratory 18 Rate Blood Pressure 154/89 O2 Sat by Pulse 100 Oximetry (%) on episode of bp elevation clonidine 0.1 mg po prn Objective: 03/08/20 11:04 Laboratory Tests 03/05/20 03/05/20 03/05/20 09:40 09:40 09:40 WBC 6.1 RBC 4.62 Hgb 13.7 Hct 42.0 MCV 90.8 MCH 29.8 MCHC 32.8 RDW 19.2 H Plt Count 169 D MPV 9.2 D Sodium 135 L Potassium 4.3 Chloride 98 Carbon Dioxide 28 Anion Gap 9 BUN 7.7 Creatinine 0.6 Est GFR (CKD-EPI)AfAm 139.75 Est GFR (CKD-EPI)NonAf 120.58 Random Glucose 109 H Calcium 8.7 Total Bilirubin 0.8 AST 132 H ALT 83 H Alkaline Phosphatase 125 H Total Protein 7.4 Albumin 3.1 L Syphilis Serology Non-reactive COVID-19 (FRANCY) 03/05/20 09:40 WBC RBC Hgb Hct MCV MCH MCHC RDW Plt Count MPV Sodium Potassium Chloride Carbon Dioxide Anion Gap BUN Creatinine Est GFR (CKD-EPI)AfAm Est GFR (CKD-EPI)NonAf Random Glucose Calcium Total Bilirubin AST ALT Alkaline Phosphatase Total Protein Albumin Syphilis Serology COVID-19 (FRANCY) Not detected ast elevation 03/08/20 11:05 repeat 03/09/20 Assessment: 03/08/20 11:05 alcohol and opiate withdrawal Plan: ativan and methadone regiments
[2020-03-08] MEDS: METHOCARBAMOL 500 MG TABLET PO PRN (22:07)
[2020-03-08] MEDS: THIAMINE HCL 100 MG TABLET (FP) PO SCH (22:07)
[2020-03-08] MEDS: MELATONIN 5 MG TABLETS PO SCH (22:07)
[2020-03-09] MEDS ORDERED: LORazepam 0.5 MG TABLET PO PRN
[2020-03-09] MEDS ORDERED: chlordiazePOXIDE HCL 10 MG CAPSULE PO SCH (05:00)
[2020-03-09] MEDS: LORazepam 0.5 MG TABLET PO SCH ×4 (05:34→22:14)
[2020-03-09] MEDS ORDERED: METHADONE HCL 10 MG TABLET (FOR DETOX USE ONLY) PO ONE (10:00)
[2020-03-09] MEDS: NICOTINE 7 MG/24 HOURS TOPICAL PATCH TD SCH (10:54)
[2020-03-09] MEDS: amLODIPine BESYLATE 10 MG TABLET (FP) PO SCH (10:54)
[2020-03-09] MEDS: PRENATAL VITAMINS W/ FOLIC ACID TABLET (FP) PO SCH (10:54)
--- NOTE | 2020-03-09 11:26 | PN ---
[facility] CIWA - CIWA Score Nausea/Vomitin-No Nausea/No Vomiting Muscle Tremors: 1-None Visible, but [place] Anxiety: 1-Mildly Anxious Agitation: 0-Normal Activity Paroxysmal Sweats: No Perspiration Orientation: 0-Oriented Tacttile Disturbances: 0-None Auditory Disturbances: 0-None Visual Disturbances: 0-None Headache: 1-Very Mild CIWA-Ar Total Score: 3 S COWS - Scale Resting Pulse: 1= [place] 81-100 Sweatin= No chills or Flushing Restless Observation: 0= Sits Still Pupil Size: 0= Normal to Room Light Bone or Joint Aches: 1= Mild Discomfort Runny Nose/ Eye Tearin= None GI Upset > 30mins: 0= None Tremor Observation of Outstretched Hands: 0= None Yawning Observation: 0= None Anxiety or Irritability: 1=Feels Anxious/Irritable Goose Flesh Skin: 0=Smooth Skin COWS Score: 3 S Progress Note (SOAP) Subjective: 44 years old male admitted on 03/05/20 for alcohol and opiate withdrawal sx management treating with ativan and methadone regiment feeling better today ate breakfast in room social with peers in day room discussing aftercare with staff mr chow prefers [facility] for alcohol and opiate recovery Objective: 03/09/20 11:43 Vital Signs - 24 hr 03/08/20 03/08/20 03/08/20 12:36 16:38 20:25 Temperature 98.1 F 97.1 F L 97.3 F L Pulse Rate 101 H 82 82 Respiratory 20 16 19 Rate Blood Pressure 129/91 122/80 127/86 O2 Sat by Pulse 100 Oximetry (%) 03/09/20 03/09/20 03/09/20 06:21 07:41 08:30 Temperature 97.6 F 97.5 F L 97.1 F L Pulse Rate 83 97 H 84 Respiratory 18 100 H 18 Rate Blood Pressure 152/100 118/83 127/80 O2 Sat by Pulse 99 100 Oximetry (%) Laboratory Tests 03/05/20 03/05/20 03/05/20 09:40 09:40 09:40 WBC 6.1 RBC 4.62 Hgb 13.7 Hct 42.0 MCV 90.8 MCH 29.8 MCHC 32.8 RDW 19.2 H Plt Count 169 D MPV 9.2 D Sodium 135 L Potassium 4.3 Chloride 98 Carbon Dioxide 28 Anion Gap 9 BUN 7.7 Creatinine 0.6 Est GFR (CKD-EPI)AfAm 139.75 Est GFR (CKD-EPI)NonAf 120.58 Random Glucose 109 H Calcium 8.7 Total Bilirubin 0.8 AST 132 H ALT 83 H Alkaline Phosphatase 125 H Total Protein 7.4 Albumin 3.1 L Syphilis Serology Non-reactive COVID-19 (FRANCY) 03/05/20 09:40 WBC RBC Hgb Hct MCV MCH MCHC RDW Plt Count MPV Sodium Potassium Chloride Carbon Dioxide Anion Gap BUN Creatinine Est GFR (CKD-EPI)AfAm Est GFR (CKD-EPI)NonAf Random Glucose Calcium Total Bilirubin AST ALT Alkaline Phosphatase Total Protein Albumin Syphilis Serology COVID-19 (FRANCY) Not detected 03/09/20 11:44 ast repeat pending Assessment: 03/09/20 11:44 alcohol and opiate withdrawal Plan: ativan and methadone regiment
[2020-03-09] MEDS: THIAMINE HCL 100 MG TABLET (FP) PO SCH (21:55)
[2020-03-09] MEDS: MELATONIN 5 MG TABLETS PO SCH (21:55)
[2020-03-10] MEDS ORDERED: chlordiazePOXIDE HCL 10 MG CAPSULE PO ONE (05:00)
[2020-03-10] MEDS ORDERED: LORazepam 0.5 MG TABLET PO ONE (05:00)
[2020-03-10] MEDS ORDERED: METHADONE HCL 5 MG TABLET (FOR DETOX USE ONLY) PO ONE (06:00)
[2020-03-10 09:10] VITALS: BP 125/82; PULSE 90; TEMP 97.3
[2020-03-10] MEDS: NICOTINE 7 MG/24 HOURS TOPICAL PATCH TD SCH (09:48)
[2020-03-10] MEDS: PRENATAL VITAMINS W/ FOLIC ACID TABLET (FP) PO SCH (09:48)
[2020-03-10] MEDS: amLODIPine BESYLATE 10 MG TABLET (FP) PO SCH (09:48)
--- NOTE | 2020-03-10 11:49 | DS ---
[facility] Detox Discharge Summary Admission Date: 03/05/20 Discharge Date: 03/10/20 - History Present History: Alcohol Dependence - Physical Exam Results Vital Signs: Vital Signs Temperature 97.3 F L 03/10/20 08:30 Pulse Rate 90 03/10/20 08:30 Respiratory Rate 03/10/20 08:30 Blood Pressure 125/82 03/10/20 08:30 O2 Sat by Pulse Oximetry (%) 100 03/10/20 08:30 Pertinent Admission Physical Exam Findings: PE Gnl: WDWN, in no distress Ms: awake, alert, nl language Motor; nl Gait; steady Coord; nl Laboratory Tests 03/05/20 03/05/20 03/05/20 09:40 09:40 09:40 WBC 6.1 RBC 4.62 Hgb 13.7 Hct 42.0 MCV 90.8 MCH 29.8 MCHC 32.8 RDW 19.2 H Plt Count 169 D MPV 9.2 D Sodium 135 L Potassium 4.3 Chloride 98 Carbon Dioxide 28 Anion Gap 9 BUN 7.7 Creatinine 0.6 Est GFR (CKD-EPI)AfAm 139.75 Est GFR (CKD-EPI)NonAf 120.58 Random Glucose 109 H Calcium 8.7 Total Bilirubin 0.8 AST 132 H ALT 83 H Alkaline Phosphatase 125 H Total Protein 7.4 Albumin 3.1 L Syphilis Serology Non-reactive COVID-19 (FRANCY) 03/05/20 09:40 WBC RBC Hgb Hct MCV MCH MCHC RDW Plt Count MPV Sodium Potassium Chloride Carbon Dioxide Anion Gap BUN Creatinine Est GFR (CKD-EPI)AfAm Est GFR (CKD-EPI)NonAf Random Glucose Calcium Total Bilirubin AST ALT Alkaline Phosphatase Total Protein Albumin Syphilis Serology COVID-19 (FRANCY) Not detected Vital Signs Temperature 97.3 F L 03/10/20 08:30 Pulse Rate 90 03/10/20 08:30 Respiratory Rate 03/10/20 08:30 Blood Pressure 125/82 03/10/20 08:30 O2 Sat by Pulse Oximetry (%) 100 03/10/20 08:30 - Treatment Hospital Course: Detox Protocol Followed, Detoxed Safely, Responded well, Discharged Condition Good, Rehab Referral Accepted Patient has Accepted a Rehab Referral to: [facility] - Medication Discharge Medications: Ambulatory Orders Aripiprazole [Abilify -] 5 mg PO DAILY #30 tablet 12/19/16 Amlodipine Besylate [Norvasc -] 10 mg PO DAILY 30 Days #30 tablet 03/10/20
== END 2020-03-10 11:15 | disposition other institution (70) | DRG 773 ==
LOC: YASAS 08:40 → Y3N 09:25
PROVIDERS: ADMIT Allergy & Immunology; ATTEND Allergy & Immunology
PROC: HZ2ZZZZ Detoxification Services for Substance Abuse Treatment (ICD-10-PCS; principal; 2020-03-05)
DX: F10.230 Alcohol dependence with withdrawal, uncomplicated (principal); F11.23 Opioid dependence with withdrawal; F12.20 Cannabis dependence, uncomplicated; F17.210 Nicotine dependence, cigarettes, uncomplicated; F19.280 Other psychoactive substance dependence with psychoactive substance-induced anxiety disorder; F19.282 Other psychoactive substance dependence with psychoactive substance-induced sleep disorder; F32.9 Major depressive disorder, single episode, unspecified; F90.9 Attention-deficit hyperactivity disorder, unspecified type; I10 Essential (primary) hypertension; R74.0 Nonspecific elevation of levels of transaminase and lactic acid dehydrogenase [LDH]; B18.2 Chronic viral hepatitis C; M54.30 Sciatica, unspecified side; Z62.810 Personal history of physical and sexual abuse in childhood; Z94.5 Skin transplant status; Z59.0 Homelessness
CPT/HCPCS: 36415; 80053; 85027; 86780; J0735; U0003

== ENCOUNTER 2020-07-25 15:42 | Inpatient (IN) | payer BC ==
[2020-07-25 16:37] VITALS: BMI 27.1
[2020-07-25] MEDS ORDERED: MAGNESIUM CITRATE 300 ML BOTTLE PO PRN (17:08)
[2020-07-25] MEDS ORDERED: MENTHOL/PHENOL 1 EACH UD MM PRN (17:08)
[2020-07-25] MEDS ORDERED: MAGNESIUM HYDROX 2400MG/30ML ORAL SUSPENSION 30 ML CUP PO PRN (17:08)
[2020-07-25] MEDS ORDERED: MAG HYDROX/AL HYDROX/SIMETH 30 ML UNIT-DOSE CUP PO PRN (17:08)
[2020-07-25] MEDS ORDERED: ACETAMINOPHEN 325 MG TABLET (FP) PO PRN ×2 (17:08)
[2020-07-25] MEDS ORDERED: NICOTINE POLACRILEX 2 MG GUM BUC PRN (17:08)
[2020-07-25] MEDS ORDERED: BISMUTH SUBSALICYLATE 524 MG/30 ML UD PO PRN (17:08)
[2020-07-25] MEDS ORDERED: METHADONE HCL 10 MG TABLET (FOR DETOX USE ONLY) PO ONE (17:08)
[2020-07-25] MEDS ORDERED: ONDANSETRON *ODT* 4 MG TABLET SL PRN (17:08)
[2020-07-25] MEDS ORDERED: cloNIDine HCL 0.1 MG TABLET PO PRN (17:08)
[2020-07-25] MEDS: chlordiazePOXIDE HCL 25 MG CAPSULE PO SCH ×2 (18:02→22:27)
[2020-07-25] MEDS: NICOTINE 21 MG/24 HOURS TOPICAL PATCH TD SCH (18:03)
[2020-07-25] MEDS: hydrOXYzine PAMOATE 25 MG CAPSULE (FP) PO SCH ×2 (18:03→22:27)
[2020-07-25] MEDS: PRENATAL VITAMINS W/ FOLIC ACID TABLET (FP) PO SCH (19:26)
[2020-07-25] MEDS: METHOCARBAMOL 500 MG TABLET PO PRN (20:31)
[2020-07-25] MEDS: chlordiazePOXIDE HCL 25 MG CAPSULE PO PRN (20:31)
[2020-07-25] MEDS: THIAMINE HCL 100 MG TABLET (FP) PO SCH (22:27)
[2020-07-25] MEDS: MELATONIN 5 MG TABLETS PO SCH (22:30)
[2020-07-26] MEDS: chlordiazePOXIDE HCL 25 MG CAPSULE PO SCH ×4 (05:34→22:14)
[2020-07-26] MEDS: hydrOXYzine PAMOATE 25 MG CAPSULE (FP) PO SCH ×5 (05:35→22:14)
[2020-07-26] MEDS ORDERED: METHADONE HCL 10 MG TABLET (FOR DETOX USE ONLY) ONE (08:21)
[2020-07-26] MEDS ORDERED: METHADONE HCL 5 MG TABLET (FOR DETOX USE ONLY) ONE (08:21)
[2020-07-26] MEDS: NICOTINE 21 MG/24 HOURS TOPICAL PATCH TD SCH (09:59)
[2020-07-26] MEDS: PRENATAL VITAMINS W/ FOLIC ACID TABLET (FP) PO SCH (10:00)
[2020-07-26] MEDS ORDERED: METHADONE (DETOX) 20 MG, METHADONE (DETOX) 5 MG PO ONE (10:00)
[2020-07-26] MEDS: amLODIPine BESYLATE 10 MG TABLET (FP) PO SCH (10:01)
[2020-07-26] MEDS: chlordiazePOXIDE HCL 25 MG CAPSULE PO PRN (15:25)
[2020-07-26] MEDS: THIAMINE HCL 100 MG TABLET (FP) PO SCH (22:14)
[2020-07-26] MEDS: MIRTAZAPINE 15 MG TABLET (FP) PO SCH (22:14)
[2020-07-26] MEDS: MELATONIN 5 MG TABLETS PO SCH (22:16)
[2020-07-27] MEDS: hydrOXYzine PAMOATE 25 MG CAPSULE (FP) PO SCH ×5 (05:47→22:07)
[2020-07-27] MEDS: chlordiazePOXIDE HCL 25 MG CAPSULE PO SCH ×4 (05:47→22:07)
[2020-07-27] MEDS ORDERED: METHADONE HCL 10 MG TABLET (FOR DETOX USE ONLY) PO ONE (10:00)
[2020-07-27] MEDS: ARIPiprazole 5 MG TABLET PO SCH (10:03)
[2020-07-27] MEDS: PRENATAL VITAMINS W/ FOLIC ACID TABLET (FP) PO SCH (10:03)
[2020-07-27] MEDS: NICOTINE 21 MG/24 HOURS TOPICAL PATCH TD SCH (10:04)
[2020-07-27] MEDS: amLODIPine BESYLATE 10 MG TABLET (FP) PO SCH (10:04)
[2020-07-27 10:30] LABS: HEMATOCRIT 39.9 % (35.4-49); HEMOGLOBIN 13.2 GM/dL (11.7-16.9); MCH 30.9 pg (25.7-33.7); MCHC 33.1 g/dl (32.0-35.9); MEAN CELL VOLUME 93.5 fl (80-96); MEAN PLT VOLUME 9.5 fl (7.5-11.1); PLATELET COUNT 155 K/MM3 (134-434); RBC 4.27 M/mm3 (4.00-5.60); RDW 16.3 % (11.9-15.9); WHITE BLOOD COUNT 3.7 K/mm3 (4.0-10.0)
[2020-07-27 10:33] LABS: POTASSIUM 3.8 mmol/L (3.5-5.1)
[2020-07-27 10:49] LABS: BLOOD UREA NITROGEN 4.6 mg/dL (7-18)
[2020-07-27 10:52] LABS: CREATININE 1.1 mg/dL (0.55-1.3)
[2020-07-27 10:53] LABS: BILIRUBIN,TOTAL 0.8 mg/dL (0.2-1)
[2020-07-27 10:54] LABS: TOT PROT 6.8 g/dl (6.4-8.2)
[2020-07-27] MEDS: THIAMINE HCL 100 MG TABLET (FP) PO SCH (22:07)
[2020-07-27] MEDS: MIRTAZAPINE 15 MG TABLET (FP) PO SCH (22:07)
[2020-07-27] MEDS: METHOCARBAMOL 500 MG TABLET PO PRN (22:07)
[2020-07-27] MEDS: MELATONIN 5 MG TABLETS PO SCH (22:07)
[2020-07-28] MEDS ORDERED: chlordiazePOXIDE HCL 10 MG CAPSULE PO PRN
[2020-07-28] MEDS: chlordiazePOXIDE HCL 10 MG CAPSULE PO SCH ×4 (05:56→22:01)
[2020-07-28] MEDS: hydrOXYzine PAMOATE 25 MG CAPSULE (FP) PO SCH ×5 (05:56→22:01)
[2020-07-28] MEDS: IBUPROFEN 400 MG TABLET (FP) PO PRN (05:57)
[2020-07-28] MEDS ORDERED: METHADONE (DETOX) 10 MG, METHADONE (DETOX) 5 MG PO ONE (10:00)
[2020-07-28] MEDS ORDERED: METHADONE HCL 5 MG TABLET (FOR DETOX USE ONLY) ONE (10:15)
[2020-07-28] MEDS ORDERED: METHADONE HCL 10 MG TABLET (FOR DETOX USE ONLY) ONE (10:15)
[2020-07-28] MEDS: NICOTINE 21 MG/24 HOURS TOPICAL PATCH TD SCH (10:17)
[2020-07-28] MEDS: amLODIPine BESYLATE 10 MG TABLET (FP) PO SCH (10:17)
[2020-07-28] MEDS: METHOCARBAMOL 500 MG TABLET PO PRN ×2 (10:17→17:10)
[2020-07-28] MEDS: PRENATAL VITAMINS W/ FOLIC ACID TABLET (FP) PO SCH (10:17)
[2020-07-28 10:40] LABS: GLUCOSE,FASTING 113 mg/dL (74-106)
[2020-07-28 10:43] LABS: SGOT/AST 105 U/L (15-37); SGPT/ALT 79 U/L (13-61)
[2020-07-28] MEDS: ARIPiprazole 5 MG TABLET PO SCH (10:54)
[2020-07-28] MEDS: THIAMINE HCL 100 MG TABLET (FP) PO SCH (22:01)
[2020-07-28] MEDS: MELATONIN 5 MG TABLETS PO SCH (22:01)
[2020-07-28] MEDS: MIRTAZAPINE 15 MG TABLET (FP) PO SCH (22:01)
[2020-07-29] MEDS: hydrOXYzine PAMOATE 25 MG CAPSULE (FP) PO SCH ×5 (05:57→22:08)
[2020-07-29] MEDS: METHOCARBAMOL 500 MG TABLET PO PRN ×3 (05:57→22:10)
[2020-07-29] MEDS: chlordiazePOXIDE HCL 10 MG CAPSULE PO SCH ×2 (05:57→16:54)
[2020-07-29] MEDS ORDERED: METHADONE HCL 10 MG TABLET (FOR DETOX USE ONLY) PO ONE (10:00)
[2020-07-29] MEDS: PRENATAL VITAMINS W/ FOLIC ACID TABLET (FP) PO SCH (10:14)
[2020-07-29] MEDS: amLODIPine BESYLATE 10 MG TABLET (FP) PO SCH (10:14)
[2020-07-29] MEDS: ARIPiprazole 5 MG TABLET PO SCH (10:15)
[2020-07-29] MEDS: NICOTINE 21 MG/24 HOURS TOPICAL PATCH TD SCH (10:15)
[2020-07-29] MEDS: THIAMINE HCL 100 MG TABLET (FP) PO SCH (22:08)
[2020-07-29] MEDS: MELATONIN 5 MG TABLETS PO SCH (22:08)
[2020-07-29] MEDS: MIRTAZAPINE 15 MG TABLET (FP) PO SCH (22:08)
[2020-07-29] MEDS: IBUPROFEN 400 MG TABLET (FP) PO PRN (23:54)
[2020-07-30] MEDS ORDERED: chlordiazePOXIDE HCL 10 MG CAPSULE PO ONE (05:00)
[2020-07-30] MEDS: hydrOXYzine PAMOATE 25 MG CAPSULE (FP) PO SCH ×2 (05:25→10:29)
[2020-07-30] MEDS: METHOCARBAMOL 500 MG TABLET PO PRN (05:26)
[2020-07-30] MEDS ORDERED: METHADONE HCL 5 MG TABLET (FOR DETOX USE ONLY) PO ONE (06:00)
[2020-07-30 09:24] VITALS: BP 127/85; PULSE 120; TEMP 97.3
[2020-07-30] MEDS: ARIPiprazole 5 MG TABLET PO SCH (10:29)
[2020-07-30] MEDS: PRENATAL VITAMINS W/ FOLIC ACID TABLET (FP) PO SCH (10:29)
[2020-07-30] MEDS: amLODIPine BESYLATE 10 MG TABLET (FP) PO SCH (10:29)
[2020-07-30] MEDS: NICOTINE 21 MG/24 HOURS TOPICAL PATCH TD SCH (10:29)
== END 2020-07-30 11:33 | disposition home or self-care (01) | DRG 773 ==
LOC: YASAS 15:42 → Y3N 17:14
PROVIDERS: ADMIT Allergy & Immunology; ATTEND Allergy & Immunology
PROC: HZ2ZZZZ Detoxification Services for Substance Abuse Treatment (ICD-10-PCS; principal; 2020-07-25)
DX: F11.23 Opioid dependence with withdrawal (principal); F10.230 Alcohol dependence with withdrawal, uncomplicated; F12.20 Cannabis dependence, uncomplicated; F17.213 Nicotine dependence, cigarettes, with withdrawal; F19.24 Other psychoactive substance dependence with psychoactive substance-induced mood disorder; F39 Unspecified mood [affective] disorder; F32.9 Major depressive disorder, single episode, unspecified; F90.9 Attention-deficit hyperactivity disorder, unspecified type; I10 Essential (primary) hypertension; B18.2 Chronic viral hepatitis C; G47.00 Insomnia, unspecified; Z86.59 Personal history of other mental and behavioral disorders; Z91.19 Patient's noncompliance with other medical treatment and regimen; Z56.0 Unemployment, unspecified
CPT/HCPCS: 36415; 80053; 82947; 82962; 84450; 84460; 85027; 86780; C9803; U0003

== ENCOUNTER 2021-04-18 09:40 | Inpatient (IN) | payer BC ==
[2021-04-18 11:54] VITALS: BMI 31.0
[2021-04-18] MEDS ORDERED: ACETAMINOPHEN 325 MG TABLET (FP) PO PRN ×2 (12:42)
[2021-04-18] MEDS ORDERED: ONDANSETRON *ODT* 4 MG TABLET SL PRN (12:42)
[2021-04-18] MEDS ORDERED: BISMUTH SUBSALICYLATE 524 MG/30 ML PO PRN (12:42)
[2021-04-18] MEDS ORDERED: MAGNESIUM CITRATE 300 ML BOTTLE PO PRN (12:42)
[2021-04-18] MEDS ORDERED: cloNIDine HCL 0.1 MG TABLET PO PRN (12:42)
[2021-04-18] MEDS ORDERED: MENTHOL/PHENOL 1 EACH UD MM PRN (12:42)
[2021-04-18] MEDS ORDERED: MAGNESIUM HYDROX 2400MG/30ML ORAL SUSPENSION 30 ML CUP PO PRN (12:42)
[2021-04-18] MEDS ORDERED: MAG HYDROX/AL HYDROX/SIMETH 30 ML UNIT-DOSE CUP PO PRN (12:42)
[2021-04-18] MEDS ORDERED: methaDONE HCL 10 MG TABLET (FOR DETOX USE ONLY) PO ONE (13:15)
[2021-04-18] MEDS: BACITRACIN 0.9 GM PACKET TP SCH ×2 (14:25→22:44)
[2021-04-18] MEDS: hydrOXYzine PAMOATE 25 MG CAPSULE (FP) PO SCH ×3 (14:26→22:44)
[2021-04-18] MEDS: diazePAM 5 MG TABLET PO PRN (14:26)
[2021-04-18] MEDS: amLODIPine BESYLATE 10 MG TABLET (FP) PO SCH (14:27)
[2021-04-18 16:01] LABS: HIV INTERPRETATION NEGATIVE (NEGATIVE)
[2021-04-18] MEDS: diazePAM 5 MG TABLET PO SCH ×2 (18:29→22:44)
[2021-04-18] MEDS ORDERED: MELATONIN 5 MG TABLETS PO SCH (22:00)
[2021-04-18] MEDS: THIAMINE HCL 100 MG TABLET (FP) PO SCH (22:44)
[2021-04-18] MEDS: SUVOREXANT 10 MG TABLET PO PRN (22:44)
[2021-04-19] MEDS: diazePAM 5 MG TABLET PO SCH ×4 (06:19→22:25)
[2021-04-19] MEDS: hydrOXYzine PAMOATE 25 MG CAPSULE (FP) PO SCH ×5 (06:19→22:25)
[2021-04-19] MEDS ORDERED: methaDONE HCL 10 MG TABLET (FOR DETOX USE ONLY) ONE (09:34)
[2021-04-19] MEDS: NICOTINE 21 MG/24 HOURS TOPICAL PATCH TD SCH (10:22)
[2021-04-19] MEDS: amLODIPine BESYLATE 10 MG TABLET (FP) PO SCH (10:22)
[2021-04-19] MEDS: BACITRACIN 0.9 GM PACKET TP SCH ×2 (10:22→22:25)
[2021-04-19] MEDS: PRENATAL VITAMINS W/ FOLIC ACID TABLET (FP) PO SCH (10:22)
[2021-04-19] MEDS: ARIPiprazole 5 MG TABLET PO SCH (10:22)
[2021-04-19 10:53] LABS: HEMATOCRIT 39.9 % (35.4-49); HEMOGLOBIN 13.1 GM/dL (11.7-16.9); MCH 29.8 pg (25.7-33.7); MCHC 32.8 g/dl (32.0-35.9); MEAN CELL VOLUME 90.9 fl (80-96); MEAN PLT VOLUME 9.2 fl (7.5-11.1); PLATELET COUNT 195 10^3/uL (134-434); RBC 4.39 M/mm3 (4.00-5.60); RDW 18.5 % (11.9-15.9); WHITE BLOOD COUNT 7.7 K/mm3 (4.0-10.0)
[2021-04-19 10:56] LABS: BLOOD UREA NITROGEN 7.2 mg/dL (7-18); CALCIUM 8.8 mg/dL (8.5-10.1)
[2021-04-19 10:57] LABS: ALBUMIN 3.5 g/dl (3.4-5.0)
[2021-04-19 11:01] LABS: BILIRUBIN,TOTAL 0.5 mg/dL (0.2-1); TOT PROT 8.5 g/dl (6.4-8.2)
[2021-04-19] MEDS ORDERED: amLODIPine BESYLATE 10 MG TABLET (FP) PO SCH (12:00)
[2021-04-19] MEDS: NICOTINE 10 MG CARTRIDGE (INHALER) IH PRN ×2 (12:51→20:30)
[2021-04-19] MEDS: THIAMINE HCL 100 MG TABLET (FP) PO SCH (22:25)
[2021-04-19] MEDS: SUVOREXANT 10 MG TABLET PO PRN (22:26)
[2021-04-20] MEDS: hydrOXYzine PAMOATE 25 MG CAPSULE (FP) PO SCH ×3 (06:10→15:26)
[2021-04-20] MEDS: diazePAM 5 MG TABLET PO SCH ×3 (06:10→22:41)
[2021-04-20] MEDS: NICOTINE 10 MG CARTRIDGE (INHALER) IH PRN ×3 (06:26→18:13)
[2021-04-20] MEDS ORDERED: methaDONE HCL 10 MG TABLET (FOR DETOX USE ONLY) PO ONE (10:00)
[2021-04-20] MEDS: PRENATAL VITAMINS W/ FOLIC ACID TABLET (FP) PO SCH (10:07)
[2021-04-20] MEDS: BACITRACIN 0.9 GM PACKET TP SCH ×2 (10:07→22:41)
[2021-04-20] MEDS: ARIPiprazole 5 MG TABLET PO SCH (10:08)
[2021-04-20] MEDS: amLODIPine BESYLATE 10 MG TABLET (FP) PO SCH (10:08)
[2021-04-20] MEDS: NICOTINE 21 MG/24 HOURS TOPICAL PATCH TD SCH (10:08)
[2021-04-20] MEDS: diazePAM 5 MG TABLET PO PRN (10:12)
[2021-04-20] MEDS: hydrOXYzine PAMOATE 25 MG CAPSULE (FP) PO PRN ×2 (15:12→22:44)
[2021-04-20] MEDS: THIAMINE HCL 100 MG TABLET (FP) PO SCH (22:41)
[2021-04-20] MEDS: SUVOREXANT 10 MG TABLET PO PRN (22:41)
[2021-04-21] MEDS: diazePAM 5 MG TABLET PO PRN (02:25)
[2021-04-21] MEDS: hydrOXYzine PAMOATE 25 MG CAPSULE (FP) PO PRN ×3 (02:26→22:48)
[2021-04-21] MEDS: METHOCARBAMOL 500 MG TABLET PO PRN ×3 (02:26→22:48)
[2021-04-21] MEDS: NICOTINE 10 MG CARTRIDGE (INHALER) IH PRN ×4 (02:28→17:59)
[2021-04-21] MEDS: NICOTINE POLACRILEX 2 MG GUM BUC PRN (05:10)
[2021-04-21] MEDS: diazePAM 5 MG TABLET PO SCH ×2 (05:10→17:57)
[2021-04-21] MEDS ORDERED: methaDONE HCL 10 MG TABLET (FOR DETOX USE ONLY) ONE (09:30)
[2021-04-21] MEDS: NICOTINE 21 MG/24 HOURS TOPICAL PATCH TD SCH (10:17)
[2021-04-21] MEDS: ARIPiprazole 5 MG TABLET PO SCH (10:18)
[2021-04-21] MEDS: BACITRACIN 0.9 GM PACKET TP SCH ×2 (10:18→22:42)
[2021-04-21] MEDS: amLODIPine BESYLATE 10 MG TABLET (FP) PO SCH (10:18)
[2021-04-21] MEDS: PRENATAL VITAMINS W/ FOLIC ACID TABLET (FP) PO SCH (10:18)
[2021-04-21] MEDS: THIAMINE HCL 100 MG TABLET (FP) PO SCH (22:42)
[2021-04-21] MEDS: SUVOREXANT 10 MG TABLET PO PRN (22:44)
[2021-04-22] MEDS ORDERED: diazePAM 5 MG TABLET PO ONE (06:00)
[2021-04-22] MEDS ORDERED: methaDONE HCL 10 MG TABLET (FOR DETOX USE ONLY) PO ONE (10:00)
[2021-04-22] MEDS: NICOTINE POLACRILEX 2 MG GUM BUC PRN (10:16)
[2021-04-22] MEDS: NICOTINE 21 MG/24 HOURS TOPICAL PATCH TD SCH (10:16)
[2021-04-22] MEDS: PRENATAL VITAMINS W/ FOLIC ACID TABLET (FP) PO SCH (10:17)
[2021-04-22] MEDS: ARIPiprazole 5 MG TABLET PO SCH (10:17)
[2021-04-22] MEDS: amLODIPine BESYLATE 10 MG TABLET (FP) PO SCH (10:17)
[2021-04-22] MEDS: METHOCARBAMOL 500 MG TABLET PO PRN ×2 (10:17→23:00)
[2021-04-22] MEDS: BACITRACIN 0.9 GM PACKET TP SCH ×2 (10:17→22:59)
[2021-04-22] MEDS: hydrOXYzine PAMOATE 25 MG CAPSULE (FP) PO PRN ×2 (10:18→23:02)
[2021-04-22] MEDS: THIAMINE HCL 100 MG TABLET (FP) PO SCH (23:00)
[2021-04-22] MEDS: IBUPROFEN 400 MG TABLET (FP) PO PRN (23:05)
[2021-04-23] MEDS: IBUPROFEN 400 MG TABLET (FP) PO PRN (06:01)
[2021-04-23] MEDS: NICOTINE POLACRILEX 2 MG GUM BUC PRN (06:05)
[2021-04-23] MEDS: hydrOXYzine PAMOATE 25 MG CAPSULE (FP) PO PRN (06:05)
[2021-04-23 10:08] VITALS: BP 130/84; PULSE 107; TEMP 97.1
== END 2021-04-23 09:45 | disposition other institution (70) | DRG 773 ==
LOC: YASAS 09:40 → Y6N 13:01 → Y3N 04-19 12:24
PROVIDERS: ADMIT Allergy & Immunology; ATTEND Allergy & Immunology
PROC: HZ2ZZZZ Detoxification Services for Substance Abuse Treatment (ICD-10-PCS; principal; 2021-04-18)
DX: F11.23 Opioid dependence with withdrawal (principal); F10.230 Alcohol dependence with withdrawal, uncomplicated; F13.20 Sedative, hypnotic or anxiolytic dependence, uncomplicated; F14.20 Cocaine dependence, uncomplicated; F12.20 Cannabis dependence, uncomplicated; F17.210 Nicotine dependence, cigarettes, uncomplicated; F32.9 Major depressive disorder, single episode, unspecified; I10 Essential (primary) hypertension; B18.2 Chronic viral hepatitis C; Z62.810 Personal history of physical and sexual abuse in childhood; Z98.890 Other specified postprocedural states; Z56.0 Unemployment, unspecified; Z59.0 Homelessness
CPT/HCPCS: 36415; 80053; 85027; 86780; 87389; C9803; J0735; Q0162; U0003; U0005

== ENCOUNTER 2022-07-05 12:54 | Inpatient (IN) | payer BC ==
[2022-07-05 14:05] VITALS: BMI 30.5
[2022-07-05] MEDS ORDERED: LOPERAMIDE HCL 2 MG CAPSULE PO PRN (15:54)
[2022-07-05] MEDS ORDERED: MAGNESIUM HYDROX 2400MG/30ML ORAL SUSPENSION 30 ML CUP PO PRN (15:54)
[2022-07-05] MEDS ORDERED: NALOXONE HCL (KLOXXADO) 8 MG SPRAY NS PRN (15:54)
[2022-07-05] MEDS ORDERED: BISMUTH SUBSALICYLATE 524 MG/30 ML PO PRN (15:54)
[2022-07-05] MEDS ORDERED: ONDANSETRON *ODT* 4 MG TABLET SL PRN (15:54)
[2022-07-05] MEDS ORDERED: MAG HYDROX/AL HYDROX/SIMETH 30 ML UNIT-DOSE CUP PO PRN (15:54)
[2022-07-05] MEDS ORDERED: BENZOCAINE/MENTHOL (CHLORASEPTIC ) LOZENGE MM PRN (15:54)
[2022-07-05] MEDS ORDERED: IBUPROFEN 400 MG TABLET (FP) PO PRN (15:54)
[2022-07-05] MEDS ORDERED: DICYCLOMINE HCL 10 MG CAPSULE PO PRN (15:54)
[2022-07-05] MEDS ORDERED: ACETAMINOPHEN 325 MG TABLET (FP) PO PRN ×2 (15:54)
[2022-07-05] MEDS ORDERED: SELENIUM SULFIDE 2.25% 180 ML SHAMPOO TP SCH (16:30)
[2022-07-05] MEDS: NICOTINE 7 MG/24 HOURS TOPICAL PATCH TD SCH (18:08)
[2022-07-05] MEDS: amLODIPine BESYLATE 10 MG TABLET (FP) PO SCH (18:09)
[2022-07-05] MEDS: MELATONIN 5 MG TABLETS PO SCH (22:50)
[2022-07-05] MEDS: METHOCARBAMOL 500 MG TABLET PO PRN (22:51)
[2022-07-05] MEDS: THIAMINE HCL 100 MG TABLET (FP) PO SCH (22:51)
[2022-07-05] MEDS: hydrOXYzine PAMOATE 25 MG CAPSULE (FP) PO PRN (22:53)
[2022-07-06] MEDS: NICOTINE 7 MG/24 HOURS TOPICAL PATCH TD SCH (11:27)
[2022-07-06] MEDS: PRENATAL VITAMINS W/ FOLIC ACID TABLET (FP) PO SCH (11:27)
[2022-07-06] MEDS: SELENIUM SULFIDE 2.25% 180 ML SHAMPOO TP SCH (11:27)
[2022-07-06] MEDS: amLODIPine BESYLATE 10 MG TABLET (FP) PO SCH (11:30)
[2022-07-06] MEDS ORDERED: FLU VACC QS2022-23(6MOS UP)/PF 60 MCG/0.5 ML SYRINGE IM ONE (12:00)
[2022-07-06] MEDS ORDERED: methaDONE HCL 10 MG TABLET (FOR DETOX USE ONLY) PO ONE (12:22)
[2022-07-06] MEDS: diazePAM 5 MG TABLET PO PRN (13:21)
[2022-07-06] MEDS: METHOCARBAMOL 500 MG TABLET PO PRN (13:22)
[2022-07-06] MEDS: cloNIDine HCL 0.1 MG TABLET PO PRN (13:22)
[2022-07-06] MEDS: hydrOXYzine PAMOATE 25 MG CAPSULE (FP) PO PRN (13:25)
[2022-07-06] MEDS: diazePAM 5 MG TABLET PO SCH ×2 (18:37→22:29)
[2022-07-06] MEDS: MELATONIN 5 MG TABLETS PO SCH (22:30)
[2022-07-06] MEDS: THIAMINE HCL 100 MG TABLET (FP) PO SCH (22:30)
[2022-07-07] MEDS: diazePAM 5 MG TABLET PO SCH ×3 (05:42→22:09)
[2022-07-07] MEDS: cloNIDine HCL 0.1 MG TABLET PO PRN (05:44)
[2022-07-07] MEDS: PRENATAL VITAMINS W/ FOLIC ACID TABLET (FP) PO SCH (10:44)
[2022-07-07] MEDS: NICOTINE 7 MG/24 HOURS TOPICAL PATCH TD SCH (10:45)
[2022-07-07] MEDS: ARIPiprazole 5 MG TABLET PO SCH (10:45)
[2022-07-07] MEDS: SELENIUM SULFIDE 2.25% 180 ML SHAMPOO TP SCH (10:45)
[2022-07-07] MEDS: amLODIPine BESYLATE 10 MG TABLET (FP) PO SCH (10:45)
[2022-07-07] MEDS: hydrOXYzine PAMOATE 25 MG CAPSULE (FP) PO PRN ×2 (10:47→22:10)
[2022-07-07] MEDS: diazePAM 5 MG TABLET PO PRN (15:20)
[2022-07-07] MEDS: THIAMINE HCL 100 MG TABLET (FP) PO SCH (22:10)
[2022-07-07] MEDS: MELATONIN 5 MG TABLETS PO SCH (22:10)
[2022-07-07] MEDS: NICOTINE 10 MG CARTRIDGE (INHALER) IH PRN (23:24)
[2022-07-08] MEDS: hydrOXYzine PAMOATE 25 MG CAPSULE (FP) PO PRN ×2 (06:06→17:46)
[2022-07-08] MEDS: diazePAM 5 MG TABLET PO SCH ×2 (06:06→17:47)
[2022-07-08] MEDS: NICOTINE 10 MG CARTRIDGE (INHALER) IH PRN ×2 (06:09→22:46)
[2022-07-08] MEDS ORDERED: methaDONE HCL 10 MG TABLET (FOR DETOX USE ONLY) PO ONE (10:00)
[2022-07-08] MEDS: amLODIPine BESYLATE 10 MG TABLET (FP) PO SCH (10:43)
[2022-07-08] MEDS: ARIPiprazole 5 MG TABLET PO SCH (10:43)
[2022-07-08] MEDS: NICOTINE 7 MG/24 HOURS TOPICAL PATCH TD SCH (10:43)
[2022-07-08] MEDS: PRENATAL VITAMINS W/ FOLIC ACID TABLET (FP) PO SCH (10:43)
[2022-07-08] MEDS: SELENIUM SULFIDE 2.25% 180 ML SHAMPOO TP SCH (10:44)
[2022-07-08] MEDS: diazePAM 5 MG TABLET PO PRN ×2 (10:46→22:44)
[2022-07-08] MEDS: MELATONIN 5 MG TABLETS PO SCH (22:43)
[2022-07-08] MEDS: THIAMINE HCL 100 MG TABLET (FP) PO SCH (22:43)
[2022-07-08] MEDS: METHOCARBAMOL 500 MG TABLET PO PRN (22:43)
[2022-07-09] MEDS ORDERED: diazePAM 5 MG TABLET PO ONE (06:00)
[2022-07-09] MEDS: METHOCARBAMOL 500 MG TABLET PO PRN ×2 (06:11→22:10)
[2022-07-09] MEDS: PRENATAL VITAMINS W/ FOLIC ACID TABLET (FP) PO SCH (10:07)
[2022-07-09] MEDS: SELENIUM SULFIDE 2.25% 180 ML SHAMPOO TP SCH (10:08)
[2022-07-09] MEDS: NICOTINE 7 MG/24 HOURS TOPICAL PATCH TD SCH (10:08)
[2022-07-09] MEDS: amLODIPine BESYLATE 10 MG TABLET (FP) PO SCH (10:08)
[2022-07-09] MEDS: ARIPiprazole 5 MG TABLET PO SCH (10:08)
[2022-07-09] MEDS: NICOTINE 10 MG CARTRIDGE (INHALER) IH PRN ×4 (10:10→23:52)
[2022-07-09 10:43] LABS: HEMATOCRIT 51.7 % (35.4-49); MCH 30.3 pg (25.7-33.7); MCHC 32.9 g/dl (32.0-35.9); MEAN CELL VOLUME 92.1 fl (80-96); PLATELET COUNT 143 10^3/uL (134-434); RBC 5.61 M/mm3 (4.00-5.60); RDW 17.8 % (11.9-15.9); WHITE BLOOD COUNT 6.1 K/mm3 (4.0-10.0)
[2022-07-09 10:45] LABS: ALBUMIN 3.8 g/dl (3.4-5.0); CALCIUM 9.4 mg/dL (8.5-10.1)
[2022-07-09 10:48] LABS: CREATININE 0.9 mg/dL (0.55-1.3)
[2022-07-09 10:50] LABS: BILIRUBIN,TOTAL 0.6 mg/dL (0.2-1); TOT PROT 8.1 g/dl (6.4-8.2)
[2022-07-09] MEDS: hydrOXYzine PAMOATE 25 MG CAPSULE (FP) PO PRN ×2 (16:01→22:10)
[2022-07-09] MEDS: MELATONIN 5 MG TABLETS PO SCH (22:09)
[2022-07-09] MEDS: THIAMINE HCL 100 MG TABLET (FP) PO SCH (22:09)
[2022-07-09] MEDS: IBUPROFEN 600 MG TABLET (FP) PO PRN (23:03)
[2022-07-10] MEDS: NICOTINE 10 MG CARTRIDGE (INHALER) IH PRN ×5 (07:39→22:14)
[2022-07-10] MEDS: PRENATAL VITAMINS W/ FOLIC ACID TABLET (FP) PO SCH (09:16)
[2022-07-10] MEDS: ARIPiprazole 5 MG TABLET PO SCH (09:16)
[2022-07-10] MEDS: SELENIUM SULFIDE 2.25% 180 ML SHAMPOO TP SCH (09:16)
[2022-07-10] MEDS: NICOTINE 7 MG/24 HOURS TOPICAL PATCH TD SCH (09:16)
[2022-07-10] MEDS: amLODIPine BESYLATE 10 MG TABLET (FP) PO SCH (09:16)
[2022-07-10] MEDS ORDERED: methaDONE HCL 10 MG TABLET (FOR DETOX USE ONLY) PO ONE (10:00)
[2022-07-10] MEDS ORDERED: P-EPHED 60MG/TRIPROLIDI 2.5MG TABLET PO PRN (10:46)
[2022-07-10 11:58] LABS: ALBUMIN 3.5 g/dl (3.4-5.0)
[2022-07-10 12:01] LABS: BILIRUBIN,DIRECT 0.2 mg/dL (0.0-0.2)
[2022-07-10 12:03] LABS: BILIRUBIN,TOTAL 0.4 mg/dL (0.2-1); TOT PROT 7.1 g/dl (6.4-8.2)
[2022-07-10] MEDS: IBUPROFEN 600 MG TABLET (FP) PO PRN (13:57)
[2022-07-10] MEDS: LACTULOSE 20 GM/30 ML UDC (FOR ORAL USE ONLY) PO SCH ×2 (15:04→22:12)
[2022-07-10] MEDS: hydrOXYzine PAMOATE 25 MG CAPSULE (FP) PO PRN ×2 (15:09→22:13)
[2022-07-10] MEDS: MELATONIN 5 MG TABLETS PO SCH (22:12)
[2022-07-10] MEDS: THIAMINE HCL 100 MG TABLET (FP) PO SCH (22:13)
[2022-07-10] MEDS: METHOCARBAMOL 500 MG TABLET PO PRN (22:13)
[2022-07-11] MEDS: NICOTINE 10 MG CARTRIDGE (INHALER) IH PRN ×2 (03:58→08:28)
[2022-07-11] MEDS: LACTULOSE 20 GM/30 ML UDC (FOR ORAL USE ONLY) PO SCH (05:28)
[2022-07-11] MEDS: hydrOXYzine PAMOATE 25 MG CAPSULE (FP) PO PRN (05:29)
[2022-07-11 08:59] VITALS: BP 152/88; PULSE 109; RESP 16; TEMP 97.3
== END 2022-07-11 09:49 | disposition home or self-care (01) | DRG 773 ==
LOC: YASAS 12:54 → Y3N 16:21
PROVIDERS: ADMIT Allergy & Immunology; ATTEND Surgery
PROC: HZ2ZZZZ Detoxification Services for Substance Abuse Treatment (ICD-10-PCS; principal; 2022-07-05)
DX: F11.23 Opioid dependence with withdrawal (principal); F10.230 Alcohol dependence with withdrawal, uncomplicated; F14.20 Cocaine dependence, uncomplicated; F12.20 Cannabis dependence, uncomplicated; F17.210 Nicotine dependence, cigarettes, uncomplicated; F19.280 Other psychoactive substance dependence with psychoactive substance-induced anxiety disorder; F19.24 Other psychoactive substance dependence with psychoactive substance-induced mood disorder; I10 Essential (primary) hypertension; G47.00 Insomnia, unspecified; B18.2 Chronic viral hepatitis C; R79.89 Other specified abnormal findings of blood chemistry; Z91.199 Patient's noncompliance with other medical treatment and regimen due to unspecified reason
CPT/HCPCS: 36415; 80053; 80076; 82140; 85027; 86780; 87811; C9803-CS; U0003; U0005